=== PATIENT | female | born 1945 | race Native Hawaiian/Other Pacific Islander ===

== ENCOUNTER → 2016-10-16 | Outpatient (CLI) | payer MEDICARE, OTHER ==
[2016-10-16 16:29] LABS: CH 31.9; CHCM 33.7; HCT 39.4 % (34.0-46.0); HDW 2.39; MCH 31.5 pg (25.0-35.0); MCHC 33.1 g/dL (31.0-37.0); MCV 95.2 fL (80.0-100.0); RBC 4.14 m/uL (3.80-5.40); RDW 14.1 % (11.5-15.5); WBC 6.6 k/uL (3.8-10.6)
[2016-10-16 16:39] LABS: Anion Gap 7 mmol/L; Blood Urea Nitrogen 18 mg/dL (7-17); Carbon Dioxide 29 mmol/L (22-30); Chloride 103 mmol/L (98-107); Non-African American GFR(MDRD) >60 (>60 ml/min/1.73 sqM); Potassium 4.5 mmol/L (3.5-5.1); Sodium 139 mmol/L (137-145)
== END | disposition home or self-care (01) ==
LOC: LABPAT 15:52
PROVIDERS: ATTEND Internal Medicine Cardiovascular Disease
DX: Z01.812 Encounter for preprocedural laboratory examination (principal); I73.9 Peripheral vascular disease, unspecified
CPT/HCPCS: 80051; 82565; 84520; 85027

== ENCOUNTER → 2016-10-23 | Day surgery (SDC) | payer MEDICARE, OTHER ==
[2016-10-22 12:02] VITALS: BMI 24.0
[~2016-10-23] MED LIST: SODIUM CHLORIDE 0.9% 1,000 ML IV SCH; ceFAZolin 1,000 MG in SODIUM CHLORIDE 0.9% IRRIGATIO 250 ML IRRIGATION ONE; ceFAZolin 2 GM in SODIUM CHLORIDE 0.9% 100 ML IVPB ONE
== END ==
LOC: CATHEP 09:57
PROVIDERS: ATTEND Internal Medicine Cardiovascular Disease
DX: Z45.010 Encounter for checking and testing of cardiac pacemaker pulse generator [battery] (principal)

== ENCOUNTER 2016-10-29 07:05 | Day surgery (SDC) | payer MEDICARE, OTHER ==
[2016-10-27 11:12] VITALS: BMI 24.0
[2016-10-29] MEDS ORDERED: ceFAZolin 2 GM in SODIUM CHLORIDE 0.9% 100 ML IVPB ONE (07:30)
[2016-10-29] MEDS ORDERED: ceFAZolin 1,000 MG in SODIUM CHLORIDE 0.9% IRRIGATIO 250 ML IRRIGATION ONE (07:30)
[2016-10-29] MEDS ORDERED: IV FLUID CONTINUATION 1,000 ML IV ONE (08:30)
[2016-10-29] MEDS ORDERED: IODIXANOL 270 MG/ML 50 ML ML IV ONE (08:50)
[2016-10-29] MEDS ORDERED: MIDAZOLAM 2 MG/2 ML VIAL ONE (08:58)
[2016-10-29] MEDS ORDERED: fentaNYL (PF) 50 MCG/ML 2 ML AMP ONE (08:58)
[2016-10-29] MEDS ORDERED: fentaNYL (PF) 50 MCG/ML 2 ML AMP IVP ONE (09:00)
[2016-10-29] MEDS ORDERED: LIDOCAINE 1% (PF) 10MG/ML VIAL SQ ONE ×2 (09:02)
[2016-10-29] MEDS: MIDAZOLAM 2 MG/2 ML VIAL IVP ONE ×2 (09:02→09:08)
[2016-10-29] MEDS ORDERED: LIDOCAINE 1% INJ 10MG/ML (20 ML MDV) SQ ONE (09:02)
[2016-10-29] MEDS ORDERED: CYCLOBENZAPRINE 10 MG TAB PO PRN (10:01)
[2016-10-29] MEDS ORDERED: ALPRAZolam 0.5 MG TAB PO PRN (10:01)
--- NOTE | 2016-10-29 10:13 | P.PCN ---
Date of Procedure: 10/29/16 Preoperative Diagnosis: Battery depletion and ventricular lead malfunction with inconsistent thresholds. Postoperative Diagnosis: The same Procedure(s) Performed: Battery replacement and insertion of new ventricular lead. Old ventricular lead is capped sutured to the floor. Axillary venography Implants: Indications for Procedure: Operative Findings: Description of Procedure: HISTORY: This is a 71-year-old female with history of dual-chamber permanent pacemaker who has reached [facility]. Patient also has problems the ventricular lead with inconsistent thresholds and lead impedance. Patient is advised to have a new ventricular lead insertion and battery change. CONSENT:I have discussed the risks, benefits and alternative therapies for the above-mentioned procedure and for both sedation/analgesia as well as necessary blood product administration, if indicated, as they pertain to this patient. The patient has indicated understanding and acceptance of the risks and procedures discussed. PROCEDURE: Patient was brought to the lab in a fasting state. Patient was prepped and draped in the usual fashion. Patient was given IV conscious sedation with fentanyl and Versed. Patient had axillary venography delineate the course of the axillary vein. The skin over the existing pulse generator was infiltrated with lidocaine. An incision was made and the capsule was exposed. The capsule was cut open and pulse generator was pulled out of the pocket. The leads were checked for thresholds. Atrial lead threshold appeared to be consistent and ventricular lead threshold appeared to be inconsistent with inconsistent impedance. Patient is advised to have a new lead. A single stick was performed into the axillary vein under fluoroscopy and its sheath was advanced into the superior vena cava. The ventricular lead was advanced into the right ventricle and was sutured to the septal area. Satisfactory position was obtained and thresholds were excellent. The old ventricular lead was And was sutured to the floor. The old atrial lead and the new ventricular lead were connected to a new pulse generator. Threshold remains stable. Conscious Sedation: Versed [: 1]mg Fentanyl 50 g Duration 55 minutes LEADS: ATRIAL: . This is manufactured by [employer] model #4480 and the serial number is [id number]. OLD VENTRICULAR: This is manufactured by [employer]. Model number is 4480. Serial number is [id number] NEW VENTRICULAR LEAD: This is manufactured by [employer]. Model number is 7742. Serial number is [id number] THRESHOLDS: ATRIUM: P-wave could not be measured. The minimum patient threshold was 0.5 V at went pulse width of 0.5 ms. Impedance is 458 ohms VENTRICLE: The minimal patient threshold was 0.6 V at pulse width of 0.5 ms. Impedance is 681 ohms R-wave: 17 mV The leads and pulse generator remained in the pocket after it was washed with antibiotics. Pocket was closed in the usual fashion. The fascia was closed with 2-0 Prolene ,the subcutaneous tissue was closed with 3-0 Prolene and the skin was closed with 4-0 Prolene. PROGRAMMING: MODE: DDDR RATE: 60-120 OUTPUT: [facility] Ventricle FINAL IMPRESSION: #1. Insertion of the new ventricular lead #2. Pulse generator change. #3. Axillary venography COMPLICATIONS: Nil PLAN: . Patient will be monitored on the telemetry unit. If stable patient be discharged home tomorrow. Chest x-ray in the morning. We'll continue prophylactic antibiotics
[2016-10-29] MEDS: FOLIC ACID 1 MG TAB PO SCH (13:11)
[2016-10-29] MEDS: ceFAZolin 2 GM in SODIUM CHLORIDE 0.9% 100 ML IVPB SCH ×2 (15:17→20:17)
[2016-10-29] MEDS: ACETAMINOPHEN TAB 325 MG TAB PO PRN ×2 (15:20→19:41)
[2016-10-29] MEDS ORDERED: traZODone HCL 100 MG TAB PO SCH (19:00)
[2016-10-29] MEDS: SODIUM CHLORIDE 0.9% 1,000 ML IV SCH (19:27)
[2016-10-29] MEDS: FAMOTIDINE 20 MG TAB PO SCH (20:18)
[2016-10-29] MEDS: OXYBUTYNIN CHLORIDE 5 MG TAB PO SCH (20:18)
[2016-10-29] MEDS: METOPROLOL TARTRATE 25 MG TAB PO SCH (20:19)
[2016-10-29] MEDS ORDERED: LATANOPROST 0.005% OPHTH DROPS 2.5 ML BTL BOTH EYES SCH (21:00)
[2016-10-29] MEDS ORDERED: GABAPENTIN 100 MG CAP PO SCH (21:00)
[2016-10-30] MEDS: ceFAZolin 2 GM in SODIUM CHLORIDE 0.9% 100 ML IVPB SCH ×2 (02:57→08:57)
[2016-10-30] MEDS: SODIUM CHLORIDE 0.9% 1,000 ML IV SCH (02:57)
[2016-10-30] MEDS ORDERED: LEVOTHYROXINE 125 MCG TAB PO SCH (06:30)
--- NOTE | 2016-10-30 07:05 | XR ---
EXAMINATION TYPE: XR chest 2V DATE OF EXAM: 10/30/2016 COMPARISON: 08/03/2014 HISTORY: Lead placement check TECHNIQUE: Frontal and lateral views of the chest are obtained. FINDINGS: Previously seen left-sided cardiac device has been replaced in the interim. New 3-lead card iac device has been implanted. Right-sided sinoatrial lead and ventricular leads are in place. Thorac ic aorta is tortuous. Left costophrenic angle is obscured by linear left basilar atelectasis. There i s no focal air space opacity, pleural effusion, or pneumothorax seen. The cardiac silhouette size is within normal limits. The osseous structures are intact. Chronic opacity overlying the right upper lung and may relate to overlying soft tissues or pleural-based density, however this is unchanged da ting back to 08/03/2014 and presumed to be benign. IMPRESSION: 1. Exchange of a left-sided cardiac device with new 3-lead cardiac device in place, leads appear appr opriately placed. 2. Left basilar atelectasis.
[2016-10-30 07:29] VITALS: RESP 18; TEMP 98
[2016-10-30] MEDS: METOPROLOL TARTRATE 25 MG TAB PO SCH (08:58)
[2016-10-30] MEDS: FAMOTIDINE 20 MG TAB PO SCH (08:58)
[2016-10-30] MEDS: OXYBUTYNIN CHLORIDE 5 MG TAB PO SCH (08:59)
[2016-10-30] MEDS ORDERED: VIT A,C & E-LUTEIN-MINERALS 1 EACH TAB PO SCH (09:00)
[2016-10-30] MEDS ORDERED: CITALOPRAM HYDROBROMIDE 10 MG TAB PO SCH (09:00)
[2016-10-30] MEDS ORDERED: LORATADINE 10 MG TAB PO SCH (09:00)
--- NOTE | 2016-10-30 10:33 | P.DS ---
Providers Date of admission: 10/29/2016 Expected date of discharge: 10/30/16 Attending physician: Lowell Lowe Primary care physician: [facility] Course: This is a 71-year-old female who presented yesterday for battery depletion and ventricular lead malfunction of dual chamber pacemaker. She underwent a battery replacement and insertion of new ventricular lead with Dr. Lowe. She tolerated the procedure without incident. Interrogation of her pacemaker was performed and deemed appropriate. Post chest xray indicates no pneumothorax with appropriate lead placement. Antibiotics have infused without incident and she is stable for discharge home to follow up with Dr. Zurita in 1 week. Instructions were given to the patient to continue to wear the sling provided on the left arm until her follow-up appt. She is not to lift, push or pull with that arm. Keep the site clean and dressing intact. She has been given prescription for [place] for pain and Keflex antibiotic. She has verbalized understanding of all instructions. Follow-up appt has been made prior to discharge home. Procedures: Dual-chamber permanent pacemaker battery replacement and insertion of new ventricular lead. Patient Condition at Discharge: Good Plan - Discharge Summary New Discharge Prescriptions: New Cephalexin [Keflex] 500 mg PO Q8HR #9 cap HYDROcodone/APAP 5-325MG [[place] 5-325] 1 tab PO Q6HR PRN #10 tab PRN Reason: Pain Continue Metoprolol Tartrate [Lopressor] 25 mg PO BID Etanercept [Enbrel] 50 mg SQ TU Cyclobenzaprine [Flexeril] 10 mg PO HS PRN PRN Reason: Muscle Spasm Ranitidine HCl [Zantac] 150 mg PO BID Oxybutynin Chloride [Ditropan] 5 mg PO BID Folic Acid 1 mg PO DAILY Gabapentin [Neurontin] 100 mg PO HS HYDROcodone/APAP 7.5-325MG [[place] 7.5-325] 1 tab PO Q6HR PRN PRN Reason: Pain Levothyroxine Sodium [Synthroid] 125 mcg PO DAILY ALPRAZolam [Xanax] 0.5 mg PO BID PRN PRN Reason: Anxiety Citalopram Hydrobromide [CeleXA] 10 mg PO DAILY Latanoprost Ophth [Xalatan 0.005%] 1 drops BOTH EYES HS traZODone HCL 100 mg PO DAILY@1900 Multivit-Min/FA/Lycopen/Lutein [Centrum Silver Tablet] 1 each PO DAILY Loratadine 10 mg PO DAILY Discharge Medication List Cyclobenzaprine [Flexeril] 10 mg PO HS PRN 09/09/13 [History] Etanercept [Enbrel] 50 mg SQ TU 09/09/13 [History] Folic Acid 1 mg PO DAILY 09/09/13 [History] Metoprolol Tartrate [Lopressor] 25 mg PO BID 09/09/13 [History] Oxybutynin Chloride [Ditropan] 5 mg PO BID 09/09/13 [History] Ranitidine HCl [Zantac] 150 mg PO BID 09/09/13 [History] Gabapentin [Neurontin] 100 mg PO HS 05/17/14 [History] HYDROcodone/APAP 7.5-325MG [[place] 7.5-325] 1 tab PO Q6HR PRN 10/23/16 [History] ALPRAZolam [Xanax] 0.5 mg PO BID PRN 10/27/16 [History] Citalopram Hydrobromide [CeleXA] 10 mg PO DAILY 10/27/16 [History] Latanoprost Ophth [Xalatan 0.005%] 1 drops BOTH EYES HS 10/27/16 [History] Levothyroxine Sodium [Synthroid] 125 mcg PO DAILY 10/27/16 [History] Loratadine 10 mg PO DAILY 10/27/16 [History] Multivit-Min/FA/Lycopen/Lutein [Centrum Silver Tablet] 1 each PO DAILY 10/27/16 [History] traZODone HCL 100 mg PO DAILY@1900 10/27/16 [History] Cephalexin [Keflex] 500 mg PO Q8HR #9 cap 10/30/16 [Rx] HYDROcodone/APAP 5-325MG [[place] 5-325] 1 tab PO Q6HR PRN #10 tab 10/30/16 [Rx] Follow up Appointment(s)/Referral(s): Lowell Lowe MD [STAFF PHYSICIAN] - 1 Week (Appointment made for device check on Nov.05 @ 3:00pm.) Patient Instructions/Handouts: Pacemaker Generator Change (DC) Activity/Diet/Wound Care/Special Instructions: Wear sling until follow up visit with Dr. Lowe. No lifting left arm above the shoulder, no pushing or pulling. Keep the area clean and dry until appointment. If you notice any increased pain, swelling, redness or fever report to Emergency department. Discharge Disposition: HOME SELF-CARE
[2016-10-30 11:19] VITALS: BP 121/74; PULSE 61
[2016-10-30] MEDS: FOLIC ACID 1 MG TAB PO SCH (12:31)
[2016-11-04] MEDS ORDERED: NON-FORMULARY DRUG (Etanercept [Enbrel] 50 MG) SQ SCH (10:01)
== END 2016-10-30 13:40 | disposition home or self-care (01) ==
LOC: CATHEP 07:05 → 3OBS 09:53 → CATHEP 10-30 13:40
PROVIDERS: ATTEND Internal Medicine Cardiovascular Disease
DX: Z45.010 Encounter for checking and testing of cardiac pacemaker pulse generator [battery] (principal); T82.118A Breakdown (mechanical) of other cardiac electronic device, initial encounter; I49.5 Sick sinus syndrome; I44.1 Atrioventricular block, second degree; E03.9 Hypothyroidism, unspecified; M06.9 Rheumatoid arthritis, unspecified; Z79.899 Other long term (current) drug therapy; Z87.891 Personal history of nicotine dependence; Z88.5 Allergy status to narcotic agent
CPT/HCPCS: 33215; 33228; 71020; 99152; 99153 ×2; C1785; C1898; J2250; Q9966; J0690 ×3; J2001; J3010

== ENCOUNTER 2016-11-27 04:32 | Observation (INO) | payer MEDICARE, OTHER ==
[2016-11-27 04:36] VITALS: RESP 18
[2016-11-27] MEDS ORDERED: NITROGLYCERIN OINT 1 INCH/GM PACKET TOPICAL STA (05:04)
[2016-11-27] MEDS ORDERED: MAG HYDROX/AL HYDROX/SIMETH 30 ML, HYOSCYAMINE ELIXIR 10 ML, CIMETIDINE HCL 300 MG PO STA ×3 (05:04)
[2016-11-27] MEDS ORDERED: ASPIRIN 81 MG PO STA (05:04)
[2016-11-27] MEDS ORDERED: IPRATROPIUM-ALBUTEROL 3 ML NEB INHALATION STA (05:05)
--- NOTE | 2016-11-27 05:08 | ED ---
General Adult HPI - General Chief complaint: Shortness of Breath Stated complaint: SOB,FALL Time Seen by Provider: 11/27/16 04:40 Source: patient, family, RN notes reviewed Mode of arrival: ambulatory Limitations: no limitations - History of Present Illness Initial comments: This is a 71-year-old female with past medical history significant for recent pacemaker replacement. Patient comes in today because she woke up the middle night with heartburn and couldn't stop coughing. Patient states she still feels short of breath and she's having some chest heaviness as well as this point. Patient denies any radiation of the heaviness. Patient denies any abdominal pain patient denies nausea vomiting. Patient states she has been coughing ever since she woke up but has not had any fever or chills. Patient denies any headache or lightheadedness. Patient denies any numbness or weakness. Patient states she used to smoke but quit about 20 years ago. - Related Data Home Medications Medication Instructions Recorded Confirmed Cyclobenzaprine [Flexeril] 10 mg PO HS PRN 09/09/13 11/27/16 Etanercept [Enbrel] 50 mg SQ TU 09/09/13 11/27/16 Folic Acid 1 mg PO DAILY 09/09/13 11/27/16 Metoprolol Tartrate [Lopressor] 25 mg PO BID 09/09/13 11/27/16 Oxybutynin Chloride [Ditropan] 5 mg PO BID 09/09/13 11/27/16 Ranitidine HCl [Zantac] 150 mg PO BID 09/09/13 11/27/16 Gabapentin [Neurontin] 100 mg PO HS 05/17/14 11/27/16 HYDROcodone/APAP 7.5-325MG [[place] 1 tab PO Q6HR PRN 10/23/16 11/27/16 7.5-325] ALPRAZolam [Xanax] 0.5 mg PO BID PRN 10/27/16 11/27/16 Citalopram Hydrobromide [CeleXA] 10 mg PO DAILY 10/27/16 11/27/16 Latanoprost Ophth [Xalatan 0.005%] 1 drops BOTH EYES HS 10/27/16 11/27/16 Levothyroxine Sodium [Synthroid] 125 mcg PO DAILY 10/27/16 11/27/16 Loratadine 10 mg PO DAILY 10/27/16 11/27/16 Multivit-Min/FA/Lycopen/Lutein 1 each PO DAILY 10/27/16 11/27/16 [Centrum Silver Tablet] traZODone HCL 100 mg PO DAILY@1900 10/27/16 11/27/16 Previous Rx's Medication Instructions Recorded HYDROcodone/APAP 5-325MG [[place] 1 tab PO Q6HR PRN #10 tab 10/30/16 5-325] Allergies Allergy/AdvReac Type Severity Reaction Status Date / Time codeine Allergy Nausea & Verified 11/27/16 04:37 Vomiting sulfamethoxazole Allergy Rash/Hives Verified 11/27/16 04:37 [From Bactrim] trimethoprim [From Bactrim] Allergy Rash/Hives Verified 11/27/16 04:37 Review of Systems ROS Statement: Those systems with pertinent positive or pertinent negative responses have been documented in the HPI. ROS Other: All systems not noted in ROS Statement are negative. Past Medical History Past Medical History: Asthma, GERD/Reflux, Osteoarthritis (OA), Pneumonia, Rheumatoid Arthritis (RA), Thyroid Disorder Additional Past Medical History / Comment(s): See Dr Lowe H&P. Hx glaucoma. Current bilateral Carpal Tunnel. Hx pneumonia approx 30 days ago. History of Any Multi-Drug Resistant Organisms: None Reported Past Surgical History: Appendectomy, Pacemaker Additional Past Surgical History / Comment(s): Pacemaker, kidney stone removal, eye surgery for glaucoma. Past Anesthesia/Blood Transfusion Reactions: No Reported Reaction Type of Cardiac Device: Permanent Pacemaker Device Placement Date:: UNKNOWN Past Psychological History: Anxiety Smoking Status: Former smoker Past Alcohol Use History: None Reported Past Drug Use History: None Reported - Past Family History Father Family Medical History: Asthma, Cancer Mother Family Medical History: Cancer General Exam - General Exam Comments Initial Comments: GENERAL: Patient is well-developed and well-nourished. Patient is nontoxic and well- hydrated and is mild distress. ENT: Neck is soft and supple. No significant lymphadenopathy is noted. Oropharynx is clear. Moist mucous membranes. Neck has full range of motion without eliciting any pain. EYES: The sclera were anicteric and conjunctiva were pink and moist. Extraocular movements were intact and pupils were equal round and reactive to light. Eyelids were unremarkable. PULMONARY: Patient is diffusely very wheezing and some slight crackles in the left base. CARDIOVASCULAR: There is a regular rate and rhythm without any murmurs gallops or rubs. ABDOMEN: Soft and nontender with normal bowel sounds. No palpable organomegaly was noted. There is no palpable pulsatile mass. SKIN: Skin is clear with no lesions or rashes and otherwise unremarkable. NEUROLOGIC: Patient is alert and oriented x3. Cranial nerves II through XII are grossly intact. Motor and sensory are also intact. Normal speech, volume and content. Symmetrical smile. MUSCULOSKELETAL: Normal extremities with adequate strength and full range of motion. No lower extremity swelling or edema. No calf tenderness. LYMPHATICS: No significant lymphadenopathy is noted PSYCHIATRIC: Normal psychiatric evaluation. Normal interpersonal interactions appears functionally intact in deals appropriately with others. No signs of depression. No signs of anxiety. Limitations: no limitations Course Vital Signs 11/27/16 11/27/16 11/27/16 04:34 05:08 05:10 Temperature 98.7 F Pulse Rate 64 60 59 L Respiratory 18 18 Rate Blood Pressure 150/80 129/86 O2 Sat by Pulse 96 99 Oximetry 11/27/16 05:19 Temperature Pulse Rate 60 Respiratory Rate Blood Pressure O2 Sat by Pulse Oximetry Medical Decision Making - Medical Decision Making EKG shows a paced rhythm at 60 bpm TN interval is 194 QRS is 74 Q-T intervals 502 QTC is 502. Patient's EKG shows no ST segment elevation or depression. Chest x-ray shows no acute abnormality. I went back into the room to reevaluate the patient she was resting comfortably when I awoke her she stated she still is having a little bit of chest pain. I spoke with Dr. Cole she agreed to admit the patient admitted the patient I consult to cardiology. - Lab Data Result diagrams: 11/27/16 04:54 11/27/16 04:54 Lab Results 11/27/16 11/27/16 11/27/16 Range/Units 04:54 04:54 04:54 WBC 6.3 (3.8-10.6) k/uL RBC 4.24 (3.80-5.40) m/uL Hgb 13.2 (11.4-16.0) gm/dL Hct 40.1 (34.0-46.0) % MCV 94.7 (80.0-100.0) fL MCH 31.2 (25.0-35.0) pg MCHC 32.9 (31.0-37.0) g/dL RDW 14.5 (11.5-15.5) % Plt Count 211 (150-450) k/uL PT (9.0-12.0) sec INR (<1.2) APTT (22.0-30.0) sec Sodium 141 (137-145) mmol/L Potassium 3.6 (3.5-5.1) mmol/L Chloride 106 (98-107) mmol/L Carbon Dioxide 25 (22-30) mmol/L Anion Gap 10 mmol/L BUN 11 (7-17) mg/dL Creatinine 0.80 (0.52-1.04) mg/dL Est GFR (MDRD) Af Amer >60 (>60 ml/min/1.73 sqM) Est GFR (MDRD) Non-Af >60 (>60 ml/min/1.73 sqM) Glucose 112 H (74-99) mg/dL Calcium 9.8 (8.4-10.2) mg/dL Magnesium 2.1 (1.6-2.3) mg/dL Total Bilirubin 0.5 (0.2-1.3) mg/dL AST 20 (14-36) U/L ALT 31 (9-52) U/L Alkaline Phosphatase 67 (38-126) U/L Total Creatine Kinase 61 (30-135) U/L CK-MB (CK-2) 0.9 (0.0-2.4) ng/mL CK-MB (CK-2) Rel Index 1.5 Troponin I <0.012 (0.000-0.034) ng/mL Total Protein 6.7 (6.3-8.2) g/dL Albumin 3.9 (3.5-5.0) g/dL 11/27/16 Range/Units 04:54 WBC (3.8-10.6) k/uL RBC (3.80-5.40) m/uL Hgb (11.4-16.0) gm/dL Hct (34.0-46.0) % MCV (80.0-100.0) fL MCH (25.0-35.0) pg MCHC (31.0-37.0) g/dL RDW (11.5-15.5) % Plt Count (150-450) k/uL PT 10.1 (9.0-12.0) sec INR 1.0 (<1.2) APTT 24.0 (22.0-30.0) sec Sodium (137-145) mmol/L Potassium (3.5-5.1) mmol/L Chloride (98-107) mmol/L Carbon Dioxide (22-30) mmol/L Anion Gap mmol/L BUN (7-17) mg/dL Creatinine (0.52-1.04) mg/dL Est GFR (MDRD) Af Amer (>60 ml/min/1.73 sqM) Est GFR (MDRD) Non-Af (>60 ml/min/1.73 sqM) Glucose (74-99) mg/dL Calcium (8.4-10.2) mg/dL Magnesium (1.6-2.3) mg/dL Total Bilirubin (0.2-1.3) mg/dL AST (14-36) U/L ALT (9-52) U/L Alkaline Phosphatase (38-126) U/L Total Creatine Kinase (30-135) U/L CK-MB (CK-2) (0.0-2.4) ng/mL CK-MB (CK-2) Rel Index Troponin I (0.000-0.034) ng/mL Total Protein (6.3-8.2) g/dL Albumin (3.5-5.0) g/dL Disposition Clinical Impression: Chest pain, Acute bronchospasm Disposition: ADMITTED IP TO THIS [facility] Referrals: Ro Root MD [Primary Care Provider] - 1-2 days Time of Disposition: 06:10
[2016-11-27 05:18] LABS: CH 32.2; CHCM 34.1; HCT 40.1 % (34.0-46.0); HDW 2.46; HGB 13.2 gm/dL (11.4-16.0); MCH 31.2 pg (25.0-35.0); MCHC 32.9 g/dL (31.0-37.0); MCV 94.7 fL (80.0-100.0); Mean Platelet Volume 7.9; RBC 4.24 m/uL (3.80-5.40); RDW 14.5 % (11.5-15.5); WBC 6.3 k/uL (3.8-10.6)
[2016-11-27 05:28] LABS: ALT 31 U/L (9-52); AST 20 U/L (14-36); Alkaline Phosphatase 67 U/L (38-126); Anion Gap 10 mmol/L; Blood Urea Nitrogen 11 mg/dL (7-17); Calcium 9.8 mg/dL (8.4-10.2); Carbon Dioxide 25 mmol/L (22-30); Chloride 106 mmol/L (98-107); Glucose 112 mg/dL (74-99); Magnesium 2.1 mg/dL (1.6-2.3); Non-African American GFR(MDRD) >60 (>60 ml/min/1.73 sqM); Potassium 3.6 mmol/L (3.5-5.1); Prothrombin Time 10.1 sec (9.0-12.0); Sodium 141 mmol/L (137-145); Total Bilirubin 0.5 mg/dL (0.2-1.3); Total Protein 6.7 g/dL (6.3-8.2)
[2016-11-27 05:37] LABS: Creatine Kinase 61 U/L (30-135)
[2016-11-27 05:50] LABS: Creatine Kinase MB 0.9 ng/mL (0.0-2.4); Troponin I <0.012 ng/mL (0.000-0.034)
[2016-11-27] MEDS ORDERED: NITROGLYCERIN SL TABS 0.4 MG TAB SUBLINGUAL PRN (06:11)
--- NOTE | 2016-11-27 06:21 | XR ---
EXAM: XR Chest, 2 Views CLINICAL HISTORY: Reason: Pain TECHNIQUE: Frontal and lateral views of the chest. COMPARISON: 10/30/2016. FINDINGS: Lungs: Mild left greater than right basilar opacities, possible atelectasis. Pleural space: No pneumothorax. Heart: Stable to slightly increased cardiac silhouette, may be related to differences in technique or pericardial effusion. Mediastinum: Stable. Bones/joints: Stable. Tubes, lines and devices: Stable left chest pacemaker. IMPRESSION: 1. Mild left greater than right basilar opacities, possible atelectasis. Correlate clinically to exclude an infectious process. 2. Stable to slightly increased cardiac silhouette, may be related to differences in technique or pericardial effusion.
[2016-11-27 06:55] VITALS: TEMP 98.1
[2016-11-27] MEDS: IPRATROPIUM-ALBUTEROL 3 ML NEB INHALATION SCH ×3 (08:29→15:59)
[2016-11-27 08:32] LABS: Creatine Kinase 57 U/L (30-135)
--- NOTE | 2016-11-27 08:37 | P.CRDCN ---
History of Present Illness History of present illness: 71-year-old female presenting with cough and possible upper respiratory symptoms. No chest discomfort but she was complaining of shortness of breath. Recent pacemaker generator change and implantation of a new right ventricular lead. Please see full dictation nurse practitioner Suggest 2-D echo and Doppler study Past Medical History Past Medical History: Asthma, Eye Disorder, GERD/Reflux, Osteoarthritis (OA), Pneumonia, Rheumatoid Arthritis (RA), Thyroid Disorder Additional Past Medical History / Comment(s): Recent pneumonia, SSS with pacer, arthritis bilateral hands, shoulders, neck and feet, hypothyroid, bilateral glaucoma, bilateral carpal tunnel syndrome. History of Any Multi-Drug Resistant Organisms: None Reported Past Surgical History: Appendectomy, Orthopedic Surgery, Pacemaker Additional Past Surgical History / Comment(s): Pacemaker, generator changes with last time being 10/30/16, kidney stone removal, bilateral eye surgery for glaucoma, colonoscopy, R foot hammer toe. Past Anesthesia/Blood Transfusion Reactions: No Reported Reaction Type of Cardiac Device: Permanent Pacemaker Device Placement Date:: 02/15/01 Smoking Status: Former smoker - Past Family History Father Family Medical History: Asthma, Cancer Additional Family Medical History / Comment(s): Father from prostate cancer at the age of 66yrs. Mother Family Medical History: Cancer Additional Family Medical History / Comment(s): Mother had lung cancer. She was a nonsmoker but exposed to 2nd hand smoke. She at the age of 53 yrs form the lung cancer and other "complications." Medications and Allergies Home Medications Medication Instructions Recorded Confirmed Type Etanercept [Enbrel] 50 mg SQ TU 09/09/13 11/27/16 History Folic Acid 1 mg PO DAILY 09/09/13 11/27/16 History Metoprolol Tartrate [Lopressor] 25 mg PO BID 09/09/13 11/27/16 History Oxybutynin Chloride [Ditropan] 5 mg PO BID 09/09/13 11/27/16 History Ranitidine HCl [Zantac] 150 mg PO BID 09/09/13 11/27/16 History Gabapentin [Neurontin] 100 mg PO HS 05/17/14 11/27/16 History HYDROcodone/APAP 7.5-325MG [[place] 1 tab PO Q6HR PRN 10/23/16 11/27/16 History 7.5-325] ALPRAZolam [Xanax] 0.5 mg PO BID PRN 10/27/16 11/27/16 History Citalopram Hydrobromide [CeleXA] 10 mg PO DAILY 10/27/16 11/27/16 History Latanoprost Ophth [Xalatan 0.005%] 1 drops BOTH EYES HS 10/27/16 11/27/16 History Levothyroxine Sodium [Synthroid] 125 mcg PO DAILY 10/27/16 11/27/16 History Loratadine 10 mg PO DAILY 10/27/16 11/27/16 History Multivit-Min/FA/Lycopen/Lutein 1 each PO DAILY 10/27/16 11/27/16 History [Centrum Silver Tablet] traZODone HCL 100 mg PO DAILY@1900 10/27/16 11/27/16 History Allergies Allergy/AdvReac Type Severity Reaction Status Date / Time codeine Allergy Rash/Hives Verified 11/27/16 08:05 sulfamethoxazole Allergy Rash/Hives Verified 11/27/16 08:05 [From Bactrim] trimethoprim [From Bactrim] Allergy Rash/Hives Verified 11/27/16 08:05 Physical Exam Vitals: Vital Signs Temp Pulse Pulse Resp BP BP Pulse Ox 11/27/16 08:29 64 11/27/16 06:53 98.1 F 61 18 145/89 99 11/27/16 06:30 98.2 F 60 18 129/80 99 11/27/16 05:19 60 11/27/16 05:10 59 L 18 129/86 99 11/27/16 05:08 60 11/27/16 04:34 98.7 F 64 18 150/80 96 Intake and Output 11/26/16 11/27/16 11/27/16 22:59 06:59 14:59 Other: Weight 61.5 kg Results 11/27/16 04:54 11/27/16 04:54 Cardiac Enzymes 11/27/16 11/27/16 Range/Units 04:54 04:54 AST 20 (14-36) U/L CK-MB (CK-2) 0.9 (0.0-2.4) ng/mL Troponin I <0.012 (0.000-0.034) ng/mL Coagulation 11/27/16 Range/Units 04:54 PT 10.1 (9.0-12.0) sec APTT 24.0 (22.0-30.0) sec CBC 11/27/16 Range/Units 04:54 WBC 6.3 (3.8-10.6) k/uL RBC 4.24 (3.80-5.40) m/uL Hgb 13.2 (11.4-16.0) gm/dL Hct 40.1 (34.0-46.0) % Plt Count 211 (150-450) k/uL Comprehensive Metabolic Panel 11/27/16 Range/Units 04:54 Sodium 141 (137-145) mmol/L Potassium 3.6 (3.5-5.1) mmol/L Chloride 106 (98-107) mmol/L Carbon Dioxide 25 (22-30) mmol/L BUN 11 (7-17) mg/dL Creatinine 0.80 (0.52-1.04) mg/dL Glucose 112 H (74-99) mg/dL Calcium 9.8 (8.4-10.2) mg/dL AST 20 (14-36) U/L ALT 31 (9-52) U/L Alkaline Phosphatase 67 (38-126) U/L Total Protein 6.7 (6.3-8.2) g/dL Albumin 3.9 (3.5-5.0) g/dL Current Medications Generic Name Dose Route Start Last Admin Trade Name Freq PRN Reason Stop Dose Admin Albuterol/Ipratropium 3 ml 11/27/16 08:00 11/27/16 08:29 Duoneb 0.5 Mg-3 Mg/3 Ml Soln INHALATION 3 ml RT-QID GAYLE Administration Aspirin 325 mg 11/28/16 09:00 Aspirin PO DAILY [facility] Nitroglycerin 1 inch 11/27/16 12:00 Nitro-Bid Oint TOPICAL Q6HR [facility] Nitroglycerin 0.4 mg 11/27/16 06:11 Nitrostat SUBLINGUAL Q5M PRN Chest Pain Intake and Output 11/26/16 11/27/16 11/27/16 22:59 06:59 14:59 Other: Weight 61.5 kg 11/27/16 04:54 11/27/16 04:54
[2016-11-27 08:43] LABS: Troponin I <0.012 ng/mL (0.000-0.034)
--- NOTE | 2016-11-27 10:37 | P.CRDCN ---
History of Present Illness Consult date: 11/27/16 History of present illness: This is a 71 year old female. She has past medical history significant for sick sinus syndrome with pacemaker implantation. She recently underwent new lead insertion and generator change with Dr. Pereira 10/29. She came to the hospital with complaints of cough and shortness of breath. She states she has been having symptoms of upper respiratory congestion over the past few days. Denies chest pain, dizziness, palpitations, nausea or vomiting. She is a non- smoker. EKG reveals atrial paced rhythm. Troponin negative x2. Review of Systems Extensive review of systems performed, negative except mentioned in HPI. Past Medical History Past Medical History: Asthma, Eye Disorder, GERD/Reflux, Osteoarthritis (OA), Pneumonia, Rheumatoid Arthritis (RA), Thyroid Disorder Additional Past Medical History / Comment(s): Recent pneumonia, SSS with pacer, arthritis bilateral hands, shoulders, neck and feet, hypothyroid, bilateral glaucoma, bilateral carpal tunnel syndrome. History of Any Multi-Drug Resistant Organisms: None Reported Past Surgical History: Appendectomy, Orthopedic Surgery, Pacemaker Additional Past Surgical History / Comment(s): Pacemaker, generator changes with last time being 10/30/16, kidney stone removal, bilateral eye surgery for glaucoma, colonoscopy, R foot hammer toe. Past Anesthesia/Blood Transfusion Reactions: No Reported Reaction Type of Cardiac Device: Permanent Pacemaker Device Placement Date:: 02/15/01 Smoking Status: Former smoker - Past Family History Father Family Medical History: Asthma, Cancer Additional Family Medical History / Comment(s): Father from prostate cancer at the age of 66yrs. Mother Family Medical History: Cancer Additional Family Medical History / Comment(s): Mother had lung cancer. She was a nonsmoker but exposed to 2nd hand smoke. She at the age of 51 yrs form the lung cancer and other "complications." Medications and Allergies Home Medications Medication Instructions Recorded Confirmed Type Etanercept [Enbrel] 50 mg SQ TU 09/09/13 11/27/16 History Folic Acid 1 mg PO DAILY 09/09/13 11/27/16 History Metoprolol Tartrate [Lopressor] 25 mg PO BID 09/09/13 11/27/16 History Oxybutynin Chloride [Ditropan] 5 mg PO BID 09/09/13 11/27/16 History Ranitidine HCl [Zantac] 150 mg PO BID 09/09/13 11/27/16 History Gabapentin [Neurontin] 100 mg PO HS 05/17/14 11/27/16 History HYDROcodone/APAP 7.5-325MG [[place] 1 tab PO Q6HR PRN 10/23/16 11/27/16 History 7.5-325] ALPRAZolam [Xanax] 0.5 mg PO BID PRN 10/27/16 11/27/16 History Citalopram Hydrobromide [CeleXA] 10 mg PO DAILY 10/27/16 11/27/16 History Latanoprost Ophth [Xalatan 0.005%] 1 drops BOTH EYES HS 10/27/16 11/27/16 History Levothyroxine Sodium [Synthroid] 125 mcg PO DAILY 10/27/16 11/27/16 History Loratadine 10 mg PO DAILY 10/27/16 11/27/16 History Multivit-Min/FA/Lycopen/Lutein 1 each PO DAILY 10/27/16 11/27/16 History [Centrum Silver Tablet] traZODone HCL 100 mg PO DAILY@1900 10/27/16 11/27/16 History Allergies Allergy/AdvReac Type Severity Reaction Status Date / Time codeine Allergy Rash/Hives Verified 11/27/16 08:05 sulfamethoxazole Allergy Rash/Hives Verified 11/27/16 08:05 [From Bactrim] trimethoprim [From Bactrim] Allergy Rash/Hives Verified 11/27/16 08:05 Physical Exam Vitals: Vital Signs Temp Pulse Pulse Resp BP BP Pulse Ox 11/27/16 08:39 60 11/27/16 08:29 64 11/27/16 06:53 98.1 F 61 18 145/89 99 11/27/16 06:30 98.2 F 60 18 129/80 99 11/27/16 05:19 60 11/27/16 05:10 59 L 18 129/86 99 11/27/16 05:08 60 11/27/16 04:34 98.7 F 64 18 150/80 96 Intake and Output 11/26/16 11/27/16 11/27/16 22:59 06:59 14:59 Other: Weight 61.5 kg GENERAL: This is a 71-year-old female in no apparent distress at the time of my examination. HEENT: Head is atraumatic, normocephalic. Pupils are equal, round. Sclerae anicteric. Conjunctivae are clear. Mucous membranes of the mouth are moist. Neck is supple. There is no jugular venous distention. No carotid bruit is heard. LUNGS: Clear to auscultation no wheezes, rales or rhonchi. No chest wall tenderness is noted on palpation or with deep breathing. HEART: Regular rate and rhythm without murmurs, rubs or gallops. S1 and S2 heard. ABDOMEN: Soft, nontender. Bowel sounds are heard. No organomegaly noted. EXTREMITIES: 2+ peripheral pulses with no evidence of peripheral edema and no calf tenderness noted. NEUROLOGIC: Patient is awake, alert and oriented x3. Results 11/27/16 04:54 11/27/16 04:54 Cardiac Enzymes 11/27/16 11/27/16 11/27/16 Range/Units 04:54 04:54 06:56 AST 20 (14-36) U/L CK-MB (CK-2) 0.9 1.0 (0.0-2.4) ng/mL Troponin I <0.012 <0.012 (0.000-0.034) ng/mL Coagulation 11/27/16 Range/Units 04:54 PT 10.1 (9.0-12.0) sec APTT 24.0 (22.0-30.0) sec CBC 11/27/16 Range/Units 04:54 WBC 6.3 (3.8-10.6) k/uL RBC 4.24 (3.80-5.40) m/uL Hgb 13.2 (11.4-16.0) gm/dL Hct 40.1 (34.0-46.0) % Plt Count 211 (150-450) k/uL Comprehensive Metabolic Panel 11/27/16 Range/Units 04:54 Sodium 141 (137-145) mmol/L Potassium 3.6 (3.5-5.1) mmol/L Chloride 106 (98-107) mmol/L Carbon Dioxide 25 (22-30) mmol/L BUN 11 (7-17) mg/dL Creatinine 0.80 (0.52-1.04) mg/dL Glucose 112 H (74-99) mg/dL Calcium 9.8 (8.4-10.2) mg/dL AST 20 (14-36) U/L ALT 31 (9-52) U/L Alkaline Phosphatase 67 (38-126) U/L Total Protein 6.7 (6.3-8.2) g/dL Albumin 3.9 (3.5-5.0) g/dL Current Medications Generic Name Dose Route Start Last Admin Trade Name Freq PRN Reason Stop Dose Admin Albuterol/Ipratropium 3 ml 11/27/16 08:00 11/27/16 08:29 Duoneb 0.5 Mg-3 Mg/3 Ml Soln INHALATION 3 ml RT-QID GAYLE Administration Aspirin 325 mg 11/28/16 09:00 Aspirin PO DAILY [facility] Nitroglycerin 1 inch 11/27/16 12:00 Nitro-Bid Oint TOPICAL Q6HR [facility] Nitroglycerin 0.4 mg 11/27/16 06:11 Nitrostat SUBLINGUAL Q5M PRN Chest Pain Intake and Output 11/26/16 11/27/16 11/27/16 22:59 06:59 14:59 Other: Weight 61.5 kg 11/27/16 04:54 11/27/16 04:54 EKG Interpretations (text) EKG reveals atrial paced rhythm. Assessment and Plan Plan: ASSESSMENT 1. Recent generator change for permanent pacemaker secondary to sick sinus syndrome. 2. Shortness of breath PLAN Obtain 2-D echo and Doppler study to evaluate ventricular function and structure. This does not present as cardiac related, most likely secondary to a pulmonary process. Thank you kindly for this consultation. She should follow up with Dr. Lowe at her regularly scheduled follow up. Nurse Practitioner note has been reviewed, I agree with a documented findings and plan of care. Patient was seen and examined.
--- NOTE | 2016-11-27 10:56 | ECHOF ---
Referral Reason:chest pain MEASUREMENTS -------- HEIGHT: 157.5 cm WEIGHT: 61.2 kg BP: 145/89 RVIDd: 2.4 cm (< 3.3) IVSd: 0.9 cm (0.6 - 1.1) LVIDd: 3.7 cm (3.9 - 5.3) LVPWd: 0.9 cm (0.6 - 1.1) IVSs: 1.2 cm LVIDs: 3.0 cm LVPWs: 1.3 cm LAESV Index (A-L): 18.56 ml/m Ao Diam: 2.7 cm (2.0 - 3.7) AV Cusp: 1.0 cm (1.5 - 2.6) LA Diam: 3.2 cm (2.7 - 3.8) MV EXCURSION: 13.666 mm (> 18.000) MV EF SLOPE: 43 mm/s (70 - 150) EPSS: 1.2 cm MV E [place]: 0.42 m/s MV DecT: 263 ms MV A [place]: 0.75 m/s MV E/A Ratio: 0.56 AR PHT: 825 ms RAP: 5.00 mmHg RVSP: 20.55 mmHg FINDINGS -------- Paced rhythm. This was a technically good study. LV size, wall thickness and systolic function are normal, with an EF greater than 55%. The left ventricular size is normal. The right ventricle is normal in size. Normal LA size by volume 22+/-6 ml/m2. The right atrial size is normal. There is mild aortic regurgitation. Mild mitral annular calcification present. Mild mitral regurgitation is present. Mild tricuspid regurgitation present. There is no evidence of pulmonary hypertension. The right ventricular systolic pressure, as measured by Doppler, is 20.55mmHg. Trace/mild (physiologic) pulmonic regurgitation. The aortic root size is normal. There is no pericardial effusion. CONCLUSIONS -------- 1. Paced rhythm. 2. There is no evidence of pulmonary hypertension. 3. The right ventricular systolic pressure, as measured by Doppler, is 20.55mmHg. 4. Trace/mild (physiologic) pulmonic regurgitation. 5. The aortic root size is normal. 6. There is no pericardial effusion. 7. This was a technically good study. 8. LV size, wall thickness and systolic function are normal, with an EF greater than 55%. 9. The left ventricular size is normal. 10. Normal LA size by volume 22+/-6 ml/m2. 11. There is mild aortic regurgitation. 12. Mild mitral annular calcification present. 13. Mild mitral regurgitation is present. 14. Mild tricuspid regurgitation present. PULLING MACHINE OPERATOR: Christina Escalona RDCS
[2016-11-27] MEDS ORDERED: NITROGLYCERIN OINT 1 INCH/GM PACKET TOPICAL SCH (12:00)
[2016-11-27 12:04] VITALS: BP 112/57
[2016-11-27 12:36] LABS: Creatine Kinase 57 U/L (30-135)
[2016-11-27 12:49] LABS: Creatine Kinase MB 0.7 ng/mL (0.0-2.4); Troponin I <0.012 ng/mL (0.000-0.034)
[2016-11-27 16:26] VITALS: PULSE 68
--- NOTE | 2016-11-27 20:07 | P.HPIM ---
History of Present Illness H&P Date: 11/27/16 (this document is going to be history and physical and discharge summary.) Chief Complaint: substernal chest pain 68-year-old pleasant female patient of Dr. Laws with history of RA ,kidney stones, GERD, thyroid disorder, history of sick sinus syndrome status post pacemaker hypothyroidism and asthma along with hypertension. Patient recently underwent a new lead insulation and generator change with Dr. Lowe on . Patient presented to ED with complaints of cough and substernal discomfort. she decided to come to the ED for evaluation as patient had a recent lead change. EKG revealed atrial paced rhythm with negative troponin. Patient denied any chest pain, dizziness, palpitation, nausea or vomiting. Denies any history of smoking. On evaluation in the morning the patient, felt better, echo was ordered to evaluate her mental function and structure with EF of greater than 55% with normal left ventricle size and pressures. Patient was seen by Dr. Schulz who felt that the patient's symptoms were noncardiac in origin. Patient was discharged on Protonix 40 mg daily for GERD and was told to follow-up with primary care physician for possible endoscopy to rule out gastritis as outpatient Review of Systems Constitutional: Denies anorexia, Denies chills, Denies chronic pain, Denies fatigue, Denies fever, Denies lethargy, Denies malaise Eyes: denies discharge, denies photophobia Ears: deny: decreased hearing Ears, nose, mouth and throat: Denies ant. neck pain, Denies dysphagia, Denies epistaxis, Denies headache, Denies nasal discharge, Denies nose pain, Denies odynophagia Cardiovascular: Denies chest pain, Denies dyspnea on exertion, Denies high blood pressure, Denies leg edema, Denies palpitations, Denies shortness of breath Respiratory: Reports cough, Denies dyspnea, Denies hemoptysis, Denies home oxygen, Denies wheezing Gastrointestinal: Reports heartburn, Reports indigestion, Denies change in bowel habits, Denies coffee ground emesis, Denies hematemesis, Denies hematochezia, Denies loss of appetite, Denies melena, Denies nausea, Denies vomiting Genitourinary: Denies hematuria, Denies urge incontinence, Denies urgency, Denies urinary frequency Musculoskeletal: Denies limitation of motion, Denies morning stiffness, Denies muscle cramps Neurological: Denies confusion, Denies double vision, Denies motor disturbance, Denies numbness, Denies seizures Past Medical History Past Medical History: Asthma, Eye Disorder, GERD/Reflux, Osteoarthritis (OA), Pneumonia, Rheumatoid Arthritis (RA), Thyroid Disorder Additional Past Medical History / Comment(s): Recent pneumonia, SSS with pacer, arthritis bilateral hands, shoulders, neck and feet, hypothyroid, bilateral glaucoma, bilateral carpal tunnel syndrome. History of Any Multi-Drug Resistant Organisms: None Reported Past Surgical History: Appendectomy, Orthopedic Surgery, Pacemaker Additional Past Surgical History / Comment(s): Pacemaker, generator changes with last time being 10/30/16, kidney stone removal, bilateral eye surgery for glaucoma, colonoscopy, R foot hammer toe. Past Anesthesia/Blood Transfusion Reactions: No Reported Reaction Type of Cardiac Device: Permanent Pacemaker Device Placement Date:: 02/15/01 Smoking Status: Former smoker - Past Family History Father Family Medical History: Asthma, Cancer Additional Family Medical History / Comment(s): Father from prostate cancer at the age of 66yrs. Mother Family Medical History: Cancer Additional Family Medical History / Comment(s): Mother had lung cancer. She was a nonsmoker but exposed to 2nd hand smoke. She at the age of 51 yrs form the lung cancer and other "complications." Medications and Allergies Home Medications Medication Instructions Recorded Confirmed Type Etanercept [Enbrel] 50 mg SQ TU 09/09/13 11/27/16 History Folic Acid 1 mg PO DAILY 09/09/13 11/27/16 History Metoprolol Tartrate [Lopressor] 25 mg PO BID 09/09/13 11/27/16 History Oxybutynin Chloride [Ditropan] 5 mg PO BID 09/09/13 11/27/16 History Gabapentin [Neurontin] 100 mg PO HS 05/17/14 11/27/16 History HYDROcodone/APAP 7.5-325MG [[place] 1 tab PO Q6HR PRN 10/23/16 11/27/16 History 7.5-325] ALPRAZolam [Xanax] 0.5 mg PO BID PRN 10/27/16 11/27/16 History Citalopram Hydrobromide [CeleXA] 10 mg PO DAILY 10/27/16 11/27/16 History Latanoprost Ophth [Xalatan 0.005%] 1 drops BOTH EYES HS 10/27/16 11/27/16 History Levothyroxine Sodium [Synthroid] 125 mcg PO DAILY 10/27/16 11/27/16 History Loratadine 10 mg PO DAILY 10/27/16 11/27/16 History Multivit-Min/FA/Lycopen/Lutein 1 each PO DAILY 10/27/16 11/27/16 History [Centrum Silver Tablet] traZODone HCL 100 mg PO DAILY@1900 10/27/16 11/27/16 History Pantoprazole Sodium [Protonix] 40 mg PO DAILY #30 tablet. 11/27/16 Rx Allergies Allergy/AdvReac Type Severity Reaction Status Date / Time codeine Allergy Rash/Hives Verified 11/27/16 08:05 sulfamethoxazole Allergy Rash/Hives Verified 11/27/16 08:05 [From Bactrim] trimethoprim [From Bactrim] Allergy Rash/Hives Verified 11/27/16 08:05 Physical Exam Vitals: Vital Signs Temp Pulse Pulse Resp BP BP Pulse Ox 11/27/16 16:11 68 11/27/16 16:01 66 11/27/16 13:07 68 11/27/16 12:56 68 11/27/16 12:00 98.1 F 69 18 112/57 98 11/27/16 08:39 60 11/27/16 08:29 64 11/27/16 06:53 98.1 F 61 18 145/89 99 11/27/16 06:30 98.2 F 60 18 129/80 99 11/27/16 05:19 60 11/27/16 05:10 59 L 18 129/86 99 11/27/16 05:08 60 11/27/16 04:34 98.7 F 64 18 150/80 96 Intake and Output 11/27/16 11/27/16 11/27/16 06:59 14:59 22:59 Intake Total 920 Balance 920 Intake: Oral 920 Other: Weight 61.5 kg - Constitutional General appearance: average body habitus, cooperative - EENT Eyes: EOMI, PERRLA, normal appearance ENT: normal oropharynx - Neck Neck: lymphadenopathy, normal ROM Carotids: bilateral: upstroke normal Thyroid: negative: normal size - Respiratory Respiratory: bilateral: CTA, negative: dullness, rales, rhonchi - Cardiovascular Rhythm: regular Heart sounds: normal: S1, S2 Abnormal Heart Sounds: no systolic murmur, no diastolic murmur ankle Peripheral Edema: bilateral: None dorsalis pedis Peripheral Pulses: bilateral: Normal - Gastrointestinal General gastrointestinal: no hepatomegaly, normal bowel sounds, soft, no tenderness - Integumentary Integumentary: no pale, no rash - Neurologic Neurologic: CNII-XII intact - Musculoskeletal Musculoskeletal: gait normal - Psychiatric Psychiatric: A&O x's 3, appropriate affect Results CBC & Chem 7: 11/27/16 04:54 11/27/16 04:54 Labs: Abnormal Lab Results - Last 24 Hours (Table) 11/27/16 Range/Units 04:54 Glucose 112 H (74-99) mg/dL Thrombosis Risk Factor Assmnt - DVT/VTE Prophylaxis DVT/VTE Prophylaxis: Mechanical Prophylaxis ordered - Choose All That Apply Any of the Below Risk Factors Present?: Yes Other Risk Factors: Yes Each Risk Factor Represents 2 Points: Age 61-74 years Other congenital or acquired thrombophilia - If yes, enter type in comment: No Thrombosis Risk Factor Assessment Total Risk Factor Score: 2 Thrombosis Risk Factor Assessment Level: Low Risk Assessment and Plan Plan: #1 chest discomfort likely atypical in nature. Echo ordered which was negative for any ventricular dysfunction with normal EF. Continue metoprolol. Cardiology consult that the symptoms were noncardiac in nature. Patient discharged on protonic 40 mg by mouth daily with further instruction to follow with primary care physician #2 urinary incontinence continue oxybutynin 5 mg twice a day #3 GERD- patient takes Zantac at home. Switch to protonic 40 mg by mouth daily #4 rheumatoid arthritis on etanercept, controlled #5 depression continue citalopram and trazodone at home dose #6 neuropathy continue gabapentin at home dose #7 ALLERGIC rhinitis continue loratadine at home dose #8 anxiety continue Xanax as needed #9 hypothyroidism continue levothyroxine #10 osteoarthritis continue [place] 7.5 mg every 6 hours when necessary needed for pain #11 DVT prophylaxis mechanical prophylaxis with LYNETTE hose while inpatient #12 . Disposition- home today Follow up with primary care physician in one week for management of GERD and possible endoscopy
[2016-11-28] MEDS ORDERED: ASPIRIN 325 MG TAB PO SCH (09:00)
== END 2016-11-27 16:18 | disposition home or self-care (01) ==
LOC: EC 04:32 → 3OBS 06:10
PROVIDERS: ADMIT Internal Medicine; ATTEND Internal Medicine
DX: R07.89 Other chest pain (principal); Z95.0 Presence of cardiac pacemaker; Z87.891 Personal history of nicotine dependence; R05 Cough; R12 Heartburn; R06.02 Shortness of breath; K21.9 Gastro-esophageal reflux disease without esophagitis; R32 Unspecified urinary incontinence; M06.9 Rheumatoid arthritis, unspecified; F32.9 Major depressive disorder, single episode, unspecified; G62.9 Polyneuropathy, unspecified; M19.042 Primary osteoarthritis, left hand; M19.041 Primary osteoarthritis, right hand; M19.012 Primary osteoarthritis, left shoulder; M19.011 Primary osteoarthritis, right shoulder; M19.072 Primary osteoarthritis, left ankle and foot; M19.071 Primary osteoarthritis, right ankle and foot; E03.9 Hypothyroidism, unspecified; M47.9 Spondylosis, unspecified; H40.9 Unspecified glaucoma; I10 Essential (primary) hypertension; Z79.899 Other long term (current) drug therapy; Z88.2 Allergy status to sulfonamides; Z88.5 Allergy status to narcotic agent; Z88.1 Allergy status to other antibiotic agents; Z87.01 Personal history of pneumonia (recurrent); F41.9 Anxiety disorder, unspecified; Z80.42 Family history of malignant neoplasm of prostate; Z80.1 Family history of malignant neoplasm of trachea, bronchus and lung; Z87.442 Personal history of urinary calculi; J45.909 Unspecified asthma, uncomplicated
CPT/HCPCS: 99285; 36415; 94640 ×2; 93005; 93306; 80053; 82550; 82553; 83735; 84484; 85027; 85610; 85730; 71020; G0378

== ENCOUNTER 2017-03-29 13:14 | Emergency (ER) | payer OTHER, MEDICARE ==
[2017-03-29] MEDS ORDERED: IBUPROFEN 600 MG TAB PO STA (13:25)
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
[2017-03-29 15:12] VITALS: BP 133/86; PULSE 65; RESP 16; TEMP 98.4
== END 2017-03-29 15:36 | disposition home or self-care (01) ==
LOC: EC 13:14
DX: S16.1XXA Strain of muscle, fascia and tendon at neck level, initial encounter (principal); S20.219A Contusion of unspecified front wall of thorax, initial encounter; R40.2412 Glasgow coma scale score 13-15, at arrival to emergency department; K21.9 Gastro-esophageal reflux disease without esophagitis; E03.9 Hypothyroidism, unspecified; F41.9 Anxiety disorder, unspecified; Z95.0 Presence of cardiac pacemaker; Z86.69 Personal history of other diseases of the nervous system and sense organs; Z87.891 Personal history of nicotine dependence; Z79.899 Other long term (current) drug therapy; Z88.5 Allergy status to narcotic agent; Z88.2 Allergy status to sulfonamides; V59.40XA Driver of pick-up truck or van injured in collision with unspecified motor vehicles in traffic accident, initial encounter; Y92.410 Unspecified street and highway as the place of occurrence of the external cause
CPT/HCPCS: 72050; 99284

== ENCOUNTER → 2017-05-20 | Outpatient (CLI) | payer MEDICARE, OTHER ==
--- NOTE | 2017-05-22 10:55 | MM ---
Reason for exam: screening (asymptomatic). Last mammogram was performed 2 years and 5 months ago. History: Patient is postmenopausal. Physical Findings: A clinical breast exam by your physician is recommended on an annual basis and results should be correlated with mammographic findings. MG Screening Mammo w CAD Bilateral CC and MLO view(s) were taken. Prior study comparison: December 06, 2014, bilateral MG diagnostic mammo w CAD [facility]. May 31, 2014, left breast MG work up mamm w CAD LT. There are scattered fibroglandular densities. No suspicious abnormality in the right breast. Left cardiac device obscures portions of the superior left breast. Subcentimeter focal asymmetry upper outer quadrant left breast at middle depth. ASSESSMENT: Incomplete: need additional imaging evaluation, BI-RAD 0 RECOMMENDATION: Special view mammogram of the left breast. If lesion persists on supplemental views, image directed ultrasound is recommended. [facility] will attempt to contact patient to return for supplemental views and ultrasound if indicated.
== END | disposition home or self-care (01) ==
LOC: RADMAMWWP 15:09
PROVIDERS: ATTEND Internal Medicine
DX: Z12.31 Encounter for screening mammogram for malignant neoplasm of breast (principal); Z68.24 Body mass index [BMI] 24.0-24.9, adult; R92.2 Inconclusive mammogram
CPT/HCPCS: 77067

== ENCOUNTER → 2017-05-27 | Outpatient (CLI) | payer MEDICARE, OTHER ==
--- NOTE | 2017-05-27 15:10 | MM ---
Reason for exam: additional evaluation requested from abnormal screening. Last mammogram was performed less than 1 month ago. History: Patient is postmenopausal. Physical Findings: Nurse did not find any significant physical abnormalities on exam. MG 3D Work Up W/Cad LT Spot compression CC, spot compression MLO, and LM view(s) were taken of the left breast. Prior study comparison: May 20, 2017, bilateral MG screening mammo w CAD. December 06, 2014, bilateral MG diagnostic mammo w CAD [facility]. There are scattered fibroglandular densities. The finding disperses on additional 3D views. Precautionary 6 month follow up recommended. These results were verbally communicated with the patient and result sheet given to the patient on 05/27/17. ASSESSMENT: Probably benign, BI-RAD 3 RECOMMENDATION: Follow-up diagnostic mammogram of the left breast in 6 months.
== END | disposition home or self-care (01) ==
LOC: RADMAMWWP 14:14
PROVIDERS: ATTEND Internal Medicine
DX: R92.8 Other abnormal and inconclusive findings on diagnostic imaging of breast (principal)
CPT/HCPCS: 77065; G0279

== ENCOUNTER 2017-08-11 22:02 | Emergency (ER) | payer MEDICARE, OTHER ==
[2017-08-11 22:18] VITALS: RESP 18
[2017-08-11] MEDS ORDERED: ACETAMINOPHEN TAB 500 MG TAB PO STA (22:55)
--- NOTE | 2017-08-11 23:08 | ED ---
General Adult HPI - General Chief complaint: Upper Respiratory Infection Stated complaint: Fever/103/Ear Pain Time Seen by Provider: 08/11/17 22:32 Source: patient Mode of arrival: ambulatory Limitations: no limitations - History of Present Illness Initial comments: 72-year-old female patient presents to emergency department today for evaluation of fever, cough, sore throat, and bilateral ear pain. Patient states that symptoms started a couple of days ago. Patient states that she was very chilled today. She denies any sputum production with the cough. She states that she is having mid to upper back pain. She denies any chest pain. States that she has been becoming winded more easily. She is a former smoker but did quit in her 30s. States she is exposed to secondhand smoke. Patient states that she has been having intermittent difficulty hearing from the left ear. States that the pain for many years radiates down into her throat. Denies any drainage from the ears. Denies any recent swimming. States she has been getting dizzy when she bends over. States that she has been urinating more frequent recently but denies any hematuria, dysuria, urinary urgency. Denies any nausea or vomiting. States that she has had several episodes of diarrhea. Patient denies any recent rash, numbness, tingling, weakness, headache, visual changes, or any other complaints. - Related Data Home Medications Medication Instructions Recorded Confirmed Metoprolol Tartrate [Lopressor] 25 mg PO BID 09/09/13 08/11/17 Oxybutynin Chloride [Ditropan] 5 mg PO BID 09/09/13 08/11/17 Gabapentin [Neurontin] 100 mg PO TID 05/17/14 08/11/17 HYDROcodone/APAP 7.5-325MG [[place] 1 tab PO Q6HR PRN 10/23/16 08/11/17 7.5-325] Levothyroxine Sodium [Synthroid] 125 mcg PO DAILY 10/27/16 08/11/17 traZODone HCL 100 mg PO DAILY@1900 10/27/16 08/11/17 Folic Acid 1 mg PO DAILY 03/29/17 08/11/17 Methotrexate Sodium [Methotrexate] 12.5 mg PO WE 03/29/17 08/11/17 Ranitidine HCl [Zantac] 150 mg PO BID 03/29/17 08/11/17 rOPINIRole HCL [Requip] 0.5 mg PO HS 08/11/17 08/11/17 Allergies Allergy/AdvReac Type Severity Reaction Status Date / Time codeine Allergy Rash/Hives Verified 08/11/17 22:32 sulfamethoxazole Allergy Rash/Hives Verified 08/11/17 22:32 [From Bactrim] trimethoprim [From Bactrim] Allergy Rash/Hives Verified 08/11/17 22:32 Review of Systems ROS Statement: Those systems with pertinent positive or pertinent negative responses have been documented in the HPI. ROS Other: All systems not noted in ROS Statement are negative. Past Medical History Past Medical History: Asthma, Eye Disorder, GERD/Reflux, Osteoarthritis (OA), Pneumonia, Rheumatoid Arthritis (RA), Thyroid Disorder Additional Past Medical History / Comment(s): SSS with pacer, arthritis bilateral hands, shoulders, neck and feet, hypothyroid, bilateral glaucoma, bilateral carpal tunnel syndrome. History of Any Multi-Drug Resistant Organisms: None Reported Past Surgical History: Appendectomy, Orthopedic Surgery, Pacemaker Additional Past Surgical History / Comment(s): Pacemaker, generator changes with last time being 10/30/16, kidney stone removal, bilateral eye surgery for glaucoma, colonoscopy, R foot hammer toe. Past Anesthesia/Blood Transfusion Reactions: No Reported Reaction Type of Cardiac Device: Permanent Pacemaker Device Placement Date:: 02/15/01 Past Psychological History: Anxiety Smoking Status: Former smoker Past Alcohol Use History: None Reported Past Drug Use History: None Reported - Past Family History Father Family Medical History: Asthma, Cancer Additional Family Medical History / Comment(s): Father from prostate cancer at the age of 66yrs. Mother Family Medical History: Cancer Additional Family Medical History / Comment(s): Mother had lung cancer. She was a nonsmoker but exposed to 2nd hand smoke. She at the age of 53 yrs form the lung cancer and other "complications." General Exam Limitations: no limitations General appearance: alert, in no apparent distress, other (This is a well- developed, well-nourished elderly female patient in no acute distress. Vital signs upon presentation are temperature 102.2F, pulse 62, respirations 18, blood pressure 117/73, pulse ox 97% on room air.) Eye exam: Present: normal appearance, PERRL, EOMI. Absent: scleral icterus, conjunctival injection, periorbital swelling ENT exam: Present: normal exam, mucous membranes moist, TM's normal bilaterally (No mastoid tenderness), normal external ear exam. Absent: normal oropharynx ( Pharyngeal erythema) Respiratory exam: Present: normal lung sounds bilaterally. Absent: respiratory distress, wheezes, rales, rhonchi, stridor Cardiovascular Exam: Present: regular rate, normal rhythm, normal heart sounds. Absent: systolic murmur, diastolic murmur, rubs, gallop, clicks GI/Abdominal exam: Present: soft, normal bowel sounds. Absent: distended, tenderness, guarding, rebound, rigid Neurological exam: Present: alert, oriented X3, CN II-XII intact Psychiatric exam: Present: normal affect, normal mood Skin exam: Present: warm, dry, intact, normal color. Absent: rash Course Vital Signs 08/11/17 08/12/17 08/12/17 22:13 00:34 01:39 Temperature 102.2 F H 100.6 F H 99.0 F Pulse Rate 62 60 61 Respiratory 18 18 18 Rate Blood Pressure 117/73 99/59 97/57 O2 Sat by Pulse 97 96 97 Oximetry EKG Findings - EKG Comments: EKG Findings:: EKG obtained at 00 17 shows atrial paced rhythm with a prolonged QT interval. Ventricular rate is 68, VA interval 190, QRS duration of 86, QT 508, QTC 508. No evidence of ST elevation or depression. Medical Decision Making - Medical Decision Making 72-year-old female patient presented to the emergency department today for evaluation of fever, cough, sore throat, ear pain. Physical examination did reveal clear equal lung sounds. Throat was erythematous but no exudate or lesions are noted. Tympanic membranes are within normal limits. Labs reviewed and are unremarkable. Patient's white blood cell count was negative. Lactic acid was normal. Chest x-ray showed no acute cardio pulmonary process. Urinalysis did show 48 white cells and trace bacteria we will send this for culture. I did discuss results with the patient, she is feeling better after receiving Tylenol. As labs are normal and patient does have symptoms of viral upper respiratory infection and will discharge at this time. She is instructed follow with her primary care physician for recheck tomorrow. Return parameters discussed in detail. She verbalizes understanding and agrees with this plan. - Lab Data Result diagrams: 08/11/17 22:30 08/11/17 22:30 Lab Results 08/11/17 08/11/17 08/11/17 Range/Units 22:30 22:30 22:30 WBC 7.5 (3.8-10.6) k/uL RBC 4.14 (3.80-5.40) m/uL Hgb 13.3 (11.4-16.0) gm/dL Hct 38.7 (34.0-46.0) % MCV 93.5 (80.0-100.0) fL MCH 32.2 (25.0-35.0) pg MCHC 34.5 (31.0-37.0) g/dL RDW 14.9 (11.5-15.5) % Plt Count 166 (150-450) k/uL Neutrophils % 73 % Lymphocytes % 15 % Monocytes % 7 % Eosinophils % 3 % Basophils % 0 % Neutrophils # 5.4 (1.3-7.7) k/uL Lymphocytes # 1.1 (1.0-4.8) k/uL Monocytes # 0.5 (0-1.0) k/uL Eosinophils # 0.2 (0-0.7) k/uL Basophils # 0.0 (0-0.2) k/uL PT (9.0-12.0) sec INR (<1.2) APTT (22.0-30.0) sec Sodium 138 (137-145) mmol/L Potassium 4.2 (3.5-5.1) mmol/L Chloride 101 (98-107) mmol/L Carbon Dioxide 27 (22-30) mmol/L Anion Gap 10 mmol/L BUN 11 (7-17) mg/dL Creatinine 0.74 (0.52-1.04) mg/dL Est GFR (CKD-EPI)AfAm >90 (>60 ml/min/1.73 sqM) Est GFR (CKD-EPI)NonAf 81 (>60 ml/min/1.73 sqM) Glucose 98 (74-99) mg/dL Plasma Lactic Acid Seven 1.0 (0.7-2.0) mmol/L Calcium 9.1 (8.4-10.2) mg/dL Total Bilirubin 0.3 (0.2-1.3) mg/dL AST 32 (14-36) U/L ALT 45 (9-52) U/L Alkaline Phosphatase 66 (38-126) U/L Total Creatine Kinase (30-135) U/L CK-MB (CK-2) (0.0-2.4) ng/mL CK-MB (CK-2) Rel Index Troponin I (0.000-0.034) ng/mL Total Protein 5.9 L (6.3-8.2) g/dL Albumin 3.6 (3.5-5.0) g/dL Urine Color Urine Appearance (Clear) Urine pH (5.0-8.0) Ur Specific [place] (1.001-1.035) Urine Protein (Negative) Urine Glucose (UA) (Negative) Urine Ketones (Negative) Urine Blood (Negative) Urine Nitrite (Negative) Urine Bilirubin (Negative) Urine Urobilinogen (<2.0) mg/dL Ur Leukocyte Esterase (Negative) Urine RBC (0-5) /hpf Urine WBC (0-5) /hpf Urine WBC Clumps (None) /hpf Ur Squamous Epith Cells (0-4) /hpf Ur Transition Epith Cell (0-1) /hpf Urine Bacteria (None) /hpf Urine Mucus (None) /hpf Influ A (H1N1/09) PCR (Not Detectd) Influenza A RNA (PCR) (Not Detectd) Influenza B (RT-PCR) (Not Detectd) 08/11/17 08/11/17 08/11/17 Range/Units 22:30 22:30 22:30 WBC (3.8-10.6) k/uL RBC (3.80-5.40) m/uL Hgb (11.4-16.0) gm/dL Hct (34.0-46.0) % MCV (80.0-100.0) fL MCH (25.0-35.0) pg MCHC (31.0-37.0) g/dL RDW (11.5-15.5) % Plt Count (150-450) k/uL Neutrophils % % Lymphocytes % % Monocytes % % Eosinophils % % Basophils % % Neutrophils # (1.3-7.7) k/uL Lymphocytes # (1.0-4.8) k/uL Monocytes # (0-1.0) k/uL Eosinophils # (0-0.7) k/uL Basophils # (0-0.2) k/uL PT 9.9 (9.0-12.0) sec INR 1.0 (<1.2) APTT 24.0 (22.0-30.0) sec Sodium (137-145) mmol/L Potassium (3.5-5.1) mmol/L Chloride (98-107) mmol/L Carbon Dioxide (22-30) mmol/L Anion Gap mmol/L BUN (7-17) mg/dL Creatinine (0.52-1.04) mg/dL Est GFR (CKD-EPI)AfAm (>60 ml/min/1.73 sqM) Est GFR (CKD-EPI)NonAf (>60 ml/min/1.73 sqM) Glucose (74-99) mg/dL Plasma Lactic Acid Seven (0.7-2.0) mmol/L Calcium (8.4-10.2) mg/dL Total Bilirubin (0.2-1.3) mg/dL AST (14-36) U/L ALT (9-52) U/L Alkaline Phosphatase (38-126) U/L Total Creatine Kinase 79 (30-135) U/L CK-MB (CK-2) 0.8 (0.0-2.4) ng/mL CK-MB (CK-2) Rel Index 1.0 Troponin I 0.020 (0.000-0.034) ng/mL Total Protein (6.3-8.2) g/dL Albumin (3.5-5.0) g/dL Urine Color Light Yellow Urine Appearance Clear (Clear) Urine pH 6.0 (5.0-8.0) Ur Specific [place] 1.008 (1.001-1.035) Urine Protein 3+ H (Negative) Urine Glucose (UA) Negative (Negative) Urine Ketones Negative (Negative) Urine Blood Small H (Negative) Urine Nitrite Negative (Negative) Urine Bilirubin Negative (Negative) Urine Urobilinogen <2.0 (<2.0) mg/dL Ur Leukocyte Esterase Moderate H (Negative) Urine RBC 3 (0-5) /hpf Urine WBC 48 H (0-5) /hpf Urine WBC Clumps Rare H (None) /hpf Ur Squamous Epith Cells 1 (0-4) /hpf Ur Transition Epith Cell <1 (0-1) /hpf Urine Bacteria Rare H (None) /hpf Urine Mucus Rare H (None) /hpf Influ A (H1N1/09) PCR (Not Detectd) Influenza A RNA (PCR) (Not Detectd) Influenza B (RT-PCR) (Not Detectd) 08/11/17 Range/Units 23:23 WBC (3.8-10.6) k/uL RBC (3.80-5.40) m/uL Hgb (11.4-16.0) gm/dL Hct (34.0-46.0) % MCV (80.0-100.0) fL MCH (25.0-35.0) pg MCHC (31.0-37.0) g/dL RDW (11.5-15.5) % Plt Count (150-450) k/uL Neutrophils % % Lymphocytes % % Monocytes % % Eosinophils % % Basophils % % Neutrophils # (1.3-7.7) k/uL Lymphocytes # (1.0-4.8) k/uL Monocytes # (0-1.0) k/uL Eosinophils # (0-0.7) k/uL Basophils # (0-0.2) k/uL PT (9.0-12.0) sec INR (<1.2) APTT (22.0-30.0) sec Sodium (137-145) mmol/L Potassium (3.5-5.1) mmol/L Chloride (98-107) mmol/L Carbon Dioxide (22-30) mmol/L Anion Gap mmol/L BUN (7-17) mg/dL Creatinine (0.52-1.04) mg/dL Est GFR (CKD-EPI)AfAm (>60 ml/min/1.73 sqM) Est GFR (CKD-EPI)NonAf (>60 ml/min/1.73 sqM) Glucose (74-99) mg/dL Plasma Lactic Acid Seven (0.7-2.0) mmol/L Calcium (8.4-10.2) mg/dL Total Bilirubin (0.2-1.3) mg/dL AST (14-36) U/L ALT (9-52) U/L Alkaline Phosphatase (38-126) U/L Total Creatine Kinase (30-135) U/L CK-MB (CK-2) (0.0-2.4) ng/mL CK-MB (CK-2) Rel Index Troponin I (0.000-0.034) ng/mL Total Protein (6.3-8.2) g/dL Albumin (3.5-5.0) g/dL Urine Color Urine Appearance (Clear) Urine pH (5.0-8.0) Ur Specific [place] (1.001-1.035) Urine Protein (Negative) Urine Glucose (UA) (Negative) Urine Ketones (Negative) Urine Blood (Negative) Urine Nitrite (Negative) Urine Bilirubin (Negative) Urine Urobilinogen (<2.0) mg/dL Ur Leukocyte Esterase (Negative) Urine RBC (0-5) /hpf Urine WBC (0-5) /hpf Urine WBC Clumps (None) /hpf Ur Squamous Epith Cells (0-4) /hpf Ur Transition Epith Cell (0-1) /hpf Urine Bacteria (None) /hpf Urine Mucus (None) /hpf Influ A (H1N1/09) PCR Not detected (Not Detectd) Influenza A RNA (PCR) Not Detected (Not Detectd) Influenza B (RT-PCR) Not Detected (Not Detectd) - Radiology Data Radiology results: report reviewed, image reviewed Two-view x-ray of the chest is obtained. There is no heart failure nor confluent pneumonic infiltrate. There is right upper lateral rib deformity and mild pleural thickening. There is no pleural effusion. There is left axillar pacemaker with a lead tips in the right ventricle. Thoracic spine is intact. Impression by Dr. Banks shows no active cardiopulmonary disease. No change. Disposition Clinical Impression: Viral upper respiratory illness Disposition: HOME SELF-CARE Condition: Good Instructions: Upper Respiratory Infection (ED) Additional Instructions: Increase fluids. Take Tylenol for pain and fever control. Follow-up with your doctor for recheck in 1-2 days. Return here immediately for any new, worsening , or concerning symptoms. Is patient prescribed a controlled substance at d/c from ED?: No Referrals: Ro Root MD [Primary Care Provider] - 1-2 days Time of Disposition: 01:32
[2017-08-11] MEDS: SODIUM CHLORIDE 0.9% 500 ML IV SCH ×2 (23:33→23:34)
[2017-08-11 23:57] LABS: Basophils % (A) 0 %; Eosinophils # (A) 0.2 k/uL (0-0.7); Eosinophils % (A) 3 %; HCT 38.7 % (34.0-46.0); HGB 13.3 gm/dL (11.4-16.0); Lymphocytes # (A) 1.1 k/uL (1.0-4.8); Lymphocytes % (A) 15 %; MCH 32.2 pg (25.0-35.0); MCHC 34.5 g/dL (31.0-37.0); MCV 93.5 fL (80.0-100.0); Mean Platelet Volume 7.1; Monocytes # (A) 0.5 k/uL (0-1.0); Monocytes % (A) 7 %; Neutrophils # (A) 5.4 k/uL (1.3-7.7); Neutrophils % (A) 73 %; Platelet Count 166 k/uL (150-450); RBC 4.14 m/uL (3.80-5.40); RDW 14.9 % (11.5-15.5); WBC 7.5 k/uL (3.8-10.6)
--- NOTE | 2017-08-11 23:57 | XR ---
EXAMINATION TYPE: XR chest 2V DATE OF EXAM: 08/11/2017 COMPARISON: 11/27/2016 HISTORY: Asthma TECHNIQUE: Frontal and lateral views of the chest are obtained. FINDINGS: There is no heart failure nor confluent pneumonic infiltrate. There is right upper lateral rib deformity and mild pleural thickening. There is no pleural effusion. There is left axillary pace maker with the lead tips in the right ventricle. Thoracic spine is intact. IMPRESSION: No active cardiopulmonary disease. No change.
[2017-08-11 23:58] LABS: Prothrombin Time 9.9 sec (9.0-12.0)
[2017-08-11 23:59] LABS: ALT 45 U/L (9-52); AST 32 U/L (14-36); Albumin 3.6 g/dL (3.5-5.0); Alkaline Phosphatase 66 U/L (38-126); Anion Gap 10 mmol/L; Blood Urea Nitrogen 11 mg/dL (7-17); Calcium 9.1 mg/dL (8.4-10.2); Carbon Dioxide 27 mmol/L (22-30); Chloride 101 mmol/L (98-107); Glucose 98 mg/dL (74-99); Potassium 4.2 mmol/L (3.5-5.1); Sodium 138 mmol/L (137-145); Total Bilirubin 0.3 mg/dL (0.2-1.3); Total Protein 5.9 g/dL (6.3-8.2)
[2017-08-12 00:10] LABS: Appearance,Urine Clear (Clear); Bacteria,Urine Rare /hpf; Bilirubin,Urine Negative (Negative); Blood,Urine Small (Negative); Color,Urine Light Yellow; Glucose,Urine (UA) Negative (Negative); Ketones,Urine Negative (Negative); Leukocyte Esterase,Urine Moderate (Negative); Mucus,Urine Rare /hpf; Nitrite,Urine Negative (Negative); Protein,Urine 3+ (Negative); RBC,Urine 3 /hpf (0-5); Specific Gravity,Urine 1.008 (1.001-1.035); Squamous Epithelial Cell,Urine 1 /hpf (0-4); Transitional Epi Cells,Urine <1 /hpf (0-1); Urobilinogen,Urine <2.0 mg/dL (<2.0); WBC,Urine 48 /hpf (0-5)
[2017-08-12 00:25] LABS: Creatine Kinase MB 0.8 ng/mL (0.0-2.4); Troponin I 0.02 ng/mL (0.000-0.034)
[2017-08-12 01:42] VITALS: BP 97/57; PULSE 61; TEMP 99
== END 2017-08-12 01:45 | disposition home or self-care (01) ==
LOC: EC 22:02
DX: J06.9 Acute upper respiratory infection, unspecified (principal); K21.9 Gastro-esophageal reflux disease without esophagitis; R06.9 Unspecified abnormalities of breathing; M19.90 Unspecified osteoarthritis, unspecified site; E03.9 Hypothyroidism, unspecified; F41.9 Anxiety disorder, unspecified; Z87.891 Personal history of nicotine dependence; Z79.899 Other long term (current) drug therapy; Z88.2 Allergy status to sulfonamides; Z88.5 Allergy status to narcotic agent; Z95.0 Presence of cardiac pacemaker
CPT/HCPCS: 36415; 71046; 80053; 81001; 82550; 82553; 83605; 84484; 85025; 85610; 85730; 87040; 87086; 87502; 87503; 93005; 99284

== ENCOUNTER → 2017-10-05 | Outpatient (CLI) | payer MEDICARE, OTHER ==
[2017-10-05 16:28] LABS: HCT 37.3 % (34.0-46.0); HGB 12.4 gm/dL (11.4-16.0); MCH 31.6 pg (25.0-35.0); MCHC 33.4 g/dL (31.0-37.0); MCV 94.7 fL (80.0-100.0); Mean Platelet Volume 6.7; Platelet Count 207 k/uL (150-450); RBC 3.93 m/uL (3.80-5.40); RDW 15.2 % (11.5-15.5); WBC 7.4 k/uL (3.8-10.6)
[2017-10-05 16:40] LABS: Albumin 3.2 g/dL (3.5-5.0); Calcium 9.2 mg/dL (8.4-10.2); Total Bilirubin 0.3 mg/dL (0.2-1.3); Total Protein 5.5 g/dL (6.3-8.2)
== END | disposition home or self-care (01) ==
LOC: LABWHC1 15:46
PROVIDERS: ATTEND Internal Medicine Cardiovascular Disease
DX: I48.91 Unspecified atrial fibrillation (principal)
CPT/HCPCS: 36415; 80053; 85027

== ENCOUNTER 2018-06-06 19:06 | Emergency (ER) | payer MEDICARE, OTHER ==
[2018-06-06 19:12] VITALS: TEMP 98.1
--- NOTE | 2018-06-06 19:32 | ED ---
General Adult HPI - General Chief complaint: Extremity Problem,Nontraumatic Stated complaint: Leg swelling Time Seen by Provider: 06/06/18 19:20 Source: patient Mode of arrival: wheelchair Limitations: no limitations - History of Present Illness Initial comments: Dictation was produced using Sandvine dictation software. please excuse any grammatical, word or spelling errors. Chief Complaint: 73-year-old female presents with bilateral lower extremity edema and bilateral popliteal pain. History of Present Illness: Patient 73-year-old female. [facility] checked her to come to the emergency department. She initially went to [facility] because one of her nurse friends told her that she may have a blood clot. Patient has history of rheumatoid arthritis. Denies ever having had blood clot in the past. Denies any chest pain or shortness of breath. Patient states her legs have been swollen over the past 2-3 days. States that swelling initially presented in her hands. The ROS documented in this emergency department record has been reviewed and confirmed by me. Those systems with pertinent positive or negative responses have been documented in the HPI. All other systems are other negative and/or noncontributory. PHYSICAL EXAM: General Impression: Alert and oriented x3, not in acute distress HEENT: Normocephalic atraumatic, extra-ocular movements intact, pupils equal and reactive to light bilaterally, mucous membranes moist. Cardiovascular: Heart regular rate and rhythm, S1&S2 audible, no murmurs, rubs or gallops Chest: Lungs clear to auscultation bilaterally, no rhonchi, no wheeze, no rales Abdomen: Bowel sounds present, abdomen soft, non-tender, non-distended, no organomegaly Musculoskeletal: Pulses present and equal in all extremities, 2+ pitting edema bilaterally Motor: no focal deficits noted Neurological: CN II-XII grossly intact, no focal motor or sensory deficits noted Skin: Intact with no visualized rashes Psych: Normal affect and mood ED course: 73-year-old female presents with chief complaint of lower extremity swelling and other popliteal pain. Vital signs upon arrival are within acceptable limits. Clinical presentation does not suggest PE given the patient not complaining of any chest pain or shortness of breath. Laboratory evaluation obtained. CBC unremarkable. Metabolic panel is unremarkable. Patient is a troponin of 0.027. She has a prematurity peptide of 1330. Urinalysis is suggestive of urinary tract infection however patient not have any urinary symptoms. Pending urine culture. Patient told these results. Chest x-ray is unremarkable. Patient denies any chest pain or shortness of breath. Patient otherwise feels well. Patient denies any history of congestive heart failure. She does have a programming development project manager Dr. Lowe manages her pacemaker. Patient states she is able to manage as outpatient and will call for an appointment this week. This is reasonable option. Patient's slight troponin elevation is likely secondary to troponin leak. Patient to be discharge with a short course of Lasix therapy. She is also given potassium supplementation. Patient told to return to the emergency Department with any worsening symptoms. Patient understandable agreeable to disposition. EKG interpretation: Ventricular rate 60,. Interval to 20, care 70, QTc 468. No [place] prolongation, no QTC prolongation, no ST or T-wave changes noted. Overall, this EKG is unremarkable - Related Data Home Medications Medication Instructions Recorded Confirmed Metoprolol Tartrate [Lopressor] 25 mg PO BID 09/09/13 06/06/18 Oxybutynin Chloride [Ditropan] 5 mg PO BID 09/09/13 06/06/18 Gabapentin [Neurontin] 100 mg PO TID 05/17/14 06/06/18 HYDROcodone/APAP 7.5-325MG [[place] 1 tab PO BID PRN 10/23/16 06/06/18 7.5-325] Levothyroxine Sodium [Synthroid] 125 mcg PO DAILY 10/27/16 06/06/18 traZODone HCL 100 mg PO HS 10/27/16 06/06/18 Folic Acid 1 mg PO DAILY 03/29/17 06/06/18 Ranitidine HCl [Zantac] 150 mg PO BID 03/29/17 06/06/18 rOPINIRole HCL [Requip] 0.5 mg PO HS PRN 08/11/17 06/06/18 Apixaban [Eliquis] 5 mg PO BID 06/06/18 06/06/18 Cyclobenzaprine [Flexeril] 5 mg PO DAILY 06/06/18 06/06/18 Latanoprost [Xalatan 0.005%] 1 drop BOTH EYES HS 06/06/18 06/06/18 Previous Rx's Medication Instructions Recorded Furosemide [Lasix] 20 mg PO DAILY #10 tab 06/06/18 Potassium Chloride 20 meq PO DAILY #24 capsule.er 06/06/18 Allergies Allergy/AdvReac Type Severity Reaction Status Date / Time codeine Allergy Rash/Hives Verified 06/06/18 19:32 sulfamethoxazole AdvReac Nausea & Verified 06/06/18 19:32 [From Bactrim] Vomiting trimethoprim [From Bactrim] AdvReac Nausea & Verified 06/06/18 19:32 Vomiting Review of Systems ROS Statement: Those systems with pertinent positive or pertinent negative responses have been documented in the HPI. ROS Other: All systems not noted in ROS Statement are negative. Past Medical History Past Medical History: Asthma, Eye Disorder, GERD/Reflux, Osteoarthritis (OA), Pneumonia, Rheumatoid Arthritis (RA), Thyroid Disorder Additional Past Medical History / Comment(s): SSS with pacer, arthritis bi lateral hands, shoulders, neck and feet, hypothyroid, bilateral glaucoma, bilateral carpal tunnel syndrome. History of Any Multi-Drug Resistant Organisms: None Reported Past Surgical History: Appendectomy, Orthopedic Surgery, Pacemaker Additional Past Surgical History / Comment(s): Pacemaker, generator changes with last time being 10/30/16, kidney stone removal, bilateral eye surgery for glaucoma, colonoscopy, R foot hammer toe. Past Anesthesia/Blood Transfusion Reactions: No Reported Reaction Type of Cardiac Device: Permanent Pacemaker Device Placement Date:: 02/15/01 Past Psychological History: Anxiety Smoking Status: Former smoker Past Alcohol Use History: None Reported Past Drug Use History: None Reported - Past Family History Father Family Medical History: Asthma, Cancer Additional Family Medical History / Comment(s): Father from prostate cancer at the age of 66yrs. Mother Family Medical History: Cancer Additional Family Medical History / Comment(s): Mother had lung cancer. She was a nonsmoker but exposed to 2nd hand smoke. She at the age of 53 yrs form the lung cancer and other "complications." General Exam Limitations: no limitations Course Vital Signs 06/06/18 19:09 Temperature 98.1 F Pulse Rate 63 Respiratory 18 Rate Blood Pressure 142/92 O2 Sat by Pulse 97 Oximetry Medical Decision Making - Lab Data Result diagrams: 06/06/18 20:18 06/06/18 20:18 Lab Results 04/07/19 04/07/19 04/07/19 Range/Units 20:00 20:18 20:18 WBC 7.8 (3.8-10.6) k/uL RBC 4.29 (3.80-5.40) m/uL Hgb 13.3 (11.4-16.0) gm/dL Hct 38.7 (34.0-46.0) % MCV 90.2 (80.0-100.0) fL MCH 31.0 (25.0-35.0) pg MCHC 34.4 (31.0-37.0) g/dL RDW 15.1 (11.5-15.5) % Plt Count 260 (150-450) k/uL Neutrophils % 53 % Lymphocytes % 26 % Monocytes % 8 % Eosinophils % 8 % Basophils % 1 % Neutrophils # 4.2 (1.3-7.7) k/uL Lymphocytes # 2.0 (1.0-4.8) k/uL Monocytes # 0.7 (0-1.0) k/uL Eosinophils # 0.7 (0-0.7) k/uL Basophils # 0.0 (0-0.2) k/uL Sodium 140 (137-145) mmol/L Potassium 4.1 (3.5-5.1) mmol/L Chloride 107 (98-107) mmol/L Carbon Dioxide 31 H (22-30) mmol/L Anion Gap 2 mmol/L BUN 14 (7-17) mg/dL Creatinine 0.66 (0.52-1.04) mg/dL Est GFR (CKD-EPI)AfAm >90 (>60 ml/min/1.73 sqM) Est GFR (CKD-EPI)NonAf 87 (>60 ml/min/1.73 sqM) Glucose 100 H (74-99) mg/dL Calcium 8.5 (8.4-10.2) mg/dL Total Bilirubin 0.3 (0.2-1.3) mg/dL AST 29 (14-36) U/L ALT 22 (9-52) U/L Alkaline Phosphatase 77 (38-126) U/L Troponin I (0.000-0.034) ng/mL NT-Pro-B Natriuret Pep pg/mL Total Protein 4.6 L (6.3-8.2) g/dL Albumin 2.2 L (3.5-5.0) g/dL Urine Color Yellow Urine Appearance Clear (Clear) Urine pH 6.5 (5.0-8.0) Ur Specific [place] 1.030 (1.001-1.035) Urine Protein 3+ H (Negative) Urine Glucose (UA) Negative (Negative) Urine Ketones Negative (Negative) Urine Blood Moderate H (Negative) Urine Nitrite Negative (Negative) Urine Bilirubin Negative (Negative) Urine Urobilinogen 2.0 (<2.0) mg/dL Ur Leukocyte Esterase Trace H (Negative) Urine RBC 8 H (0-5) /hpf Urine WBC 31 H (0-5) /hpf Ur Squamous Epith Cells 1 (0-4) /hpf Hyaline Casts 59 H (0-2) /lpf Urine Mucus Occasional H (None) /hpf 06/06/18 06/06/18 Range/Units 20:18 20:18 WBC (3.8-10.6) k/uL RBC (3.80-5.40) m/uL Hgb (11.4-16.0) gm/dL Hct (34.0-46.0) % MCV (80.0-100.0) fL MCH (25.0-35.0) pg MCHC (31.0-37.0) g/dL RDW (11.5-15.5) % Plt Count (150-450) k/uL Neutrophils % % Lymphocytes % % Monocytes % % Eosinophils % % Basophils % % Neutrophils # (1.3-7.7) k/uL Lymphocytes # (1.0-4.8) k/uL Monocytes # (0-1.0) k/uL Eosinophils # (0-0.7) k/uL Basophils # (0-0.2) k/uL Sodium (137-145) mmol/L Potassium (3.5-5.1) mmol/L Chloride (98-107) mmol/L Carbon Dioxide (22-30) mmol/L Anion Gap mmol/L BUN (7-17) mg/dL Creatinine (0.52-1.04) mg/dL Est GFR (CKD-EPI)AfAm (>60 ml/min/1.73 sqM) Est GFR (CKD-EPI)NonAf (>60 ml/min/1.73 sqM) Glucose (74-99) mg/dL Calcium (8.4-10.2) mg/dL Total Bilirubin (0.2-1.3) mg/dL AST (14-36) U/L ALT (9-52) U/L Alkaline Phosphatase (38-126) U/L Troponin I 0.027 (0.000-0.034) ng/mL NT-Pro-B Natriuret Pep 1330 pg/mL Total Protein (6.3-8.2) g/dL Albumin (3.5-5.0) g/dL Urine Color Urine Appearance (Clear) Urine pH (5.0-8.0) Ur Specific [place] (1.001-1.035) Urine Protein (Negative) Urine Glucose (UA) (Negative) Urine Ketones (Negative) Urine Blood (Negative) Urine Nitrite (Negative) Urine Bilirubin (Negative) Urine Urobilinogen (<2.0) mg/dL Ur Leukocyte Esterase (Negative) Urine RBC (0-5) /hpf Urine WBC (0-5) /hpf Ur Squamous Epith Cells (0-4) /hpf Hyaline Casts (0-2) /lpf Urine Mucus (None) /hpf Disposition Clinical Impression: CHF (congestive heart failure) Disposition: HOME SELF-CARE Condition: Good Instructions (If sedation given, give patient instructions): Heart Failure (ER) Prescriptions: Furosemide [Lasix] 20 mg PO DAILY #10 tab Potassium Chloride 20 meq PO DAILY #24 capsule.er Is patient prescribed a controlled substance at d/c from ED?: No Referrals: Lowell Lowe MD [STAFF PHYSICIAN] - 1-2 days Time of Disposition: 21:42
[2018-06-06 20:29] LABS: Appearance,Urine Clear (Clear); Bilirubin,Urine Negative (Negative); Blood,Urine Moderate (Negative); Color,Urine Yellow; Glucose,Urine (UA) Negative (Negative); Hyaline Casts,Urine 59 /lpf (0-2); Ketones,Urine Negative (Negative); Leukocyte Esterase,Urine Trace (Negative); Mucus,Urine Occasional /hpf; Nitrite,Urine Negative (Negative); PH, Urine 6.5 (5.0-8.0); Protein,Urine 3+ (Negative); RBC,Urine 8 /hpf (0-5); Squamous Epithelial Cell,Urine 1 /hpf (0-4); WBC,Urine 31 /hpf (0-5)
[2018-06-06 20:36] LABS: Basophils % (A) 1 %; Eosinophils # (A) 0.7 k/uL (0-0.7); Eosinophils % (A) 8 %; HCT 38.7 % (34.0-46.0); HGB 13.3 gm/dL (11.4-16.0); Lymphocytes % (A) 26 %; MCHC 34.4 g/dL (31.0-37.0); MCV 90.2 fL (80.0-100.0); Mean Platelet Volume 7.7; Monocytes # (A) 0.7 k/uL (0-1.0); Monocytes % (A) 8 %; Neutrophils # (A) 4.2 k/uL (1.3-7.7); Neutrophils % (A) 53 %; Platelet Count 260 k/uL (150-450); RBC 4.29 m/uL (3.80-5.40); RDW 15.1 % (11.5-15.5); WBC 7.8 k/uL (3.8-10.6)
--- NOTE | 2018-06-06 20:37 | XR ---
EXAMINATION TYPE: XR chest 2V DATE OF EXAM: 06/06/2018 COMPARISON: Prior chest x-ray 08/11/2017, 10/30/2016, 08/03/2014 HISTORY: Pain, abnormal chest x-ray TECHNIQUE: Frontal and lateral views of the chest are obtained. FINDINGS: Pacemaker is stable with leads in the right atrium and ventricle. Chronic right-sided rib d eformities, pleural changes are again noted. Increased lung volumes suggest underlying COPD. There is no pneumothorax or pleural effusion. No evident airspace disease. Cardiac mediastinal silhouette, pu lmonary vascularity and robby are not significantly changed. Aorta is tortuous. There are overlying ca rdiac leads. IMPRESSION: No acute cardiopulmonary process.
[2018-06-06 20:47] LABS: ALT 22 U/L (9-52); AST 29 U/L (14-36); Albumin 2.2 g/dL (3.5-5.0); Alkaline Phosphatase 77 U/L (38-126); Anion Gap 2 mmol/L; Blood Urea Nitrogen 14 mg/dL (7-17); Calcium 8.5 mg/dL (8.4-10.2); Carbon Dioxide 31 mmol/L (22-30); Chloride 107 mmol/L (98-107); Glucose 100 mg/dL (74-99); Potassium 4.1 mmol/L (3.5-5.1); Sodium 140 mmol/L (137-145); Total Bilirubin 0.3 mg/dL (0.2-1.3); Total Protein 4.6 g/dL (6.3-8.2)
--- NOTE | 2018-06-06 21:24 | US ---
EXAMINATION TYPE: US venous doppler duplex LE DATE OF EXAM: 06/06/2018 8:53 PM COMPARISON: NONE CLINICAL HISTORY: Pain and swelling. Left leg pain and swelling, some on the right too, no h/o dvt SIDE PERFORMED: bilateral TECHNIQUE: The lower extremity deep venous system is examined utilizing real time linear array sonog nathalia with graded compression, doppler sonography and color-flow sonography. VESSELS IMAGED: External Iliac Vein (EIV) Common Femoral Vein Deep Femoral Vein Greater Saphenous Vein * Femoral Vein Popliteal Vein Small Saphenous Vein * Proximal Calf Veins (* superficial vessels) There is normal flow, compressibility, vascular waveforms. Right Leg: Appears negative for DVT, duplicate femoral vein seen. Left Leg: Appears negative for DVT. Edema channels are present within the legs. IMPRESSION: No evident deep venous thrombosis at or above the knees. Follow-up as indicated.
[2018-06-06 22:03] VITALS: BP 126/79; PULSE 60; RESP 16
== END 2018-06-06 22:02 | disposition home or self-care (01) ==
LOC: EC 19:06
DX: I50.9 Heart failure, unspecified (principal); M25.561 Pain in right knee; M25.562 Pain in left knee; K21.9 Gastro-esophageal reflux disease without esophagitis; I49.5 Sick sinus syndrome; H40.9 Unspecified glaucoma; E03.9 Hypothyroidism, unspecified; F41.9 Anxiety disorder, unspecified; Z87.891 Personal history of nicotine dependence; Z88.2 Allergy status to sulfonamides; Z88.5 Allergy status to narcotic agent; Z79.01 Long term (current) use of anticoagulants; Z79.890 Hormone replacement therapy; Z79.899 Other long term (current) drug therapy; Z95.0 Presence of cardiac pacemaker; Z87.39 Personal history of other diseases of the musculoskeletal system and connective tissue
CPT/HCPCS: 36415; 71046; 80053; 81001; 83880; 84484; 85025; 93005; 93970; 99284

== ENCOUNTER 2018-08-04 10:27 | Inpatient (IN) | payer MEDICARE, OTHER ==
[2018-08-04] MEDS ORDERED: IPRATROPIUM-ALBUTEROL 3 ML NEB INHALATION STA (10:58)
[2018-08-04] MEDS ORDERED: ALBUTEROL NEBULIZED 2.5 MG/3 ML INHALATION STA (10:58)
[2018-08-04] MEDS ORDERED: AZITHROMYCIN 500 MG in SODIUM CHLORIDE 0.9% 250 ML IVPB STA ×2 (10:58→13:01)
[2018-08-04] MEDS ORDERED: methylPREDNISolone SOD SUCCI 125 MG/2 ML VIAL IV STA (10:58)
[2018-08-04] MEDS ORDERED: SODIUM CHLORIDE 0.9% 1,000 ML IV STA ×2 (10:58)
[2018-08-04] MEDS ORDERED: ACETAMINOPHEN TAB 500 MG TAB PO STA (11:13)
[2018-08-04 11:17] LABS: Basophils % (A) 0 %; Eosinophils # (A) 0.2 k/uL (0-0.7); Eosinophils % (A) 2 %; HCT 40.9 % (34.0-46.0); HGB 13.3 gm/dL (11.4-16.0); Lymphocytes # (A) 1.2 k/uL (1.0-4.8); Lymphocytes % (A) 11 %; MCH 29.7 pg (25.0-35.0); MCHC 32.5 g/dL (31.0-37.0); MCV 91.3 fL (80.0-100.0); Mean Platelet Volume 7.4; Monocytes # (A) 0.5 k/uL (0-1.0); Monocytes % (A) 5 %; Neutrophils # (A) 9.4 k/uL (1.3-7.7); Neutrophils % (A) 81 %; Platelet Count 299 k/uL (150-450); RBC 4.48 m/uL (3.80-5.40); RDW 14.8 % (11.5-15.5); WBC 11.6 k/uL (3.8-10.6)
--- NOTE | 2018-08-04 11:17 | ED ---
SOB HPI - General Chief Complaint: Shortness of Breath Stated Complaint: Chest pain,SOB Time Seen by Provider: 08/04/18 10:39 Source: patient, RN notes reviewed, old records reviewed Mode of arrival: wheelchair Limitations: no limitations - History of Present Illness Initial Comments: Patient is a 73-year-old female with a history of pacemaker, she presents emergency department today for evaluation with complaints of cough, increased congestion difficulty breathing for the past 2-3 days. She reports her cough is yellow-green sputum tinged. Patient states that she is use her inhaler at home but wasn't helping. Patient states that she is it near multiple smoke, but quit smoking several years ago. Denies known history of COPD. Patient states that she's had some chills. No recent Motrin or Tylenol are given. - Related Data Home Medications Medication Instructions Recorded Confirmed Metoprolol Tartrate [Lopressor] 25 mg PO BID 09/09/13 08/04/18 Oxybutynin Chloride [Ditropan] 5 mg PO BID 09/09/13 08/04/18 Gabapentin [Neurontin] 100 mg PO TID 05/17/14 08/04/18 HYDROcodone/APAP 7.5-325MG [[place] 1 tab PO BID PRN 10/23/16 08/04/18 7.5-325] Levothyroxine Sodium [Synthroid] 125 mcg PO DAILY 10/27/16 08/04/18 traZODone HCL 100 mg PO HS 10/27/16 08/04/18 Folic Acid 1 mg PO DAILY 03/29/17 08/04/18 Ranitidine HCl [Zantac] 150 mg PO BID 03/29/17 08/04/18 rOPINIRole HCL [Requip] 0.5 mg PO HS PRN 08/11/17 08/04/18 Apixaban [Eliquis] 5 mg PO BID 06/06/18 08/04/18 Cyclobenzaprine [Flexeril] 5 mg PO DAILY 06/06/18 08/04/18 Latanoprost [Xalatan 0.005%] 1 drop BOTH EYES HS 06/06/18 08/04/18 Multivitamins, Thera [Multivitamin 1 tab PO DAILY 08/04/18 08/04/18 (formulary)] Allergies Allergy/AdvReac Type Severity Reaction Status Date / Time codeine Allergy Rash/Hives Verified 08/04/18 10:47 sulfamethoxazole AdvReac Nausea & Verified 08/04/18 10:47 [From Bactrim] Vomiting trimethoprim [From Bactrim] AdvReac Nausea & Verified 08/04/18 10:47 Vomiting Review of Systems ROS Statement: Those systems with pertinent positive or pertinent negative responses have been documented in the HPI. ROS Other: All systems not noted in ROS Statement are negative. Past Medical History Past Medical History: Asthma, Eye Disorder, GERD/Reflux, Osteoarthritis (OA), Pneumonia, Rheumatoid Arthritis (RA), Thyroid Disorder Additional Past Medical History / Comment(s): SSS with pacer, arthritis bilateral hands, shoulders, neck and feet, hypothyroid, bilateral glaucoma, bilateral carpal tunnel syndrome. History of Any Multi-Drug Resistant Organisms: None Reported Past Surgical History: Appendectomy, Orthopedic Surgery, Pacemaker Additional Past Surgical History / Comment(s): Pacemaker, generator changes with last time being 10/30/16, kidney stone removal, bilateral eye surgery for glaucoma, colonoscopy, R foot hammer toe. Past Anesthesia/Blood Transfusion Reactions: No Reported Reaction Type of Cardiac Device: Permanent Pacemaker Device Placement Date:: 02/15/01 Past Psychological History: Anxiety Smoking Status: Former smoker Past Alcohol Use History: None Reported Past Drug Use History: None Reported - Past Family History Father Family Medical History: Asthma, Cancer Additional Family Medical History / Comment(s): Father from prostate cancer at the age of 66yrs. Mother Family Medical History: Cancer Additional Family Medical History / Comment(s): Mother had lung cancer. She was a nonsmoker but exposed to 2nd hand smoke. She at the age of 51 yrs form the lung cancer and other "complications." General Exam - General Exam Comments Initial Comments: 73-year-old female, alert and oriented 3. No distress. Limitations: no limitations General appearance: alert, in no apparent distress Head exam: Present: atraumatic, normocephalic, normal inspection Eye exam: Present: normal appearance, PERRL, EOMI. Absent: scleral icterus, conjunctival injection, periorbital swelling ENT exam: Present: normal exam, mucous membranes moist Neck exam: Present: normal inspection. Absent: tenderness, meningismus, lymphadenopathy Respiratory exam: Present: rhonchi, decreased breath sounds, other (Decreased lung signs over the left lower quadrant of lung field.). Absent: normal lung sounds bilaterally, respiratory distress, wheezes, rales, stridor Cardiovascular Exam: Present: regular rate, normal rhythm, normal heart sounds. Absent: systolic murmur, diastolic murmur, rubs, gallop, clicks Extremities exam: Present: normal inspection, full ROM, normal capillary refill, pedal edema, other (1+ bilateral pedal edema). Absent: tenderness, joint swelling, calf tenderness Back exam: Present: normal inspection Neurological exam: Present: alert, oriented X3, CN II-XII intact Psychiatric exam: Present: normal affect, normal mood Skin exam: Present: warm, dry, intact, normal color. Absent: rash Course Vital Signs 08/04/18 08/04/18 08/04/18 10:32 11:26 11:31 Temperature 99.1 F Pulse Rate 109 H 95 93 Respiratory 18 18 Rate Blood Pressure 123/84 120/88 O2 Sat by Pulse 91 L 100 Oximetry 08/04/18 08/04/18 11:45 12:05 Temperature Pulse Rate 97 105 H Respiratory Rate Blood Pressure O2 Sat by Pulse Oximetry Medical Decision Making - Medical Decision Making This patient's a 73-year-old female who presents emergency department today for evaluation complaints of wheezing, worsening cough difficulty breathing. She denies any specific chest pain. She has a history of Pacemaker. Patient does have decreased lung sounds reveal a pleural effusion, wheezing noted. Patient has had a low-grade fever. Chest x-ray shows evidence of pneumonia. Due to significant wheezing on initial exam Patient is given 45 minute breathing treatment. She has had some improvement. Patient was started on Rocephin and azithromycin. Patient's troponin is elevated 0.168. Patient denies any significant chest pain EKG had no significant change. Patient will be given aspirin. Discussed with Dr. Hill and will hold heparin and repeat patient's troponin. She denies any significant chest pain. Asians troponin elevations likely due to infection. Patient case discussed with Dr. Kern. - Lab Data Result diagrams: 08/04/18 11:00 08/04/18 11:00 Lab Results 08/04/18 08/04/18 08/04/18 Range/Units 11:00 11:00 11:00 WBC 11.6 H (3.8-10.6) k/uL RBC 4.48 (3.80-5.40) m/uL Hgb 13.3 (11.4-16.0) gm/dL Hct 40.9 (34.0-46.0) % MCV 91.3 (80.0-100.0) fL MCH 29.7 (25.0-35.0) pg MCHC 32.5 (31.0-37.0) g/dL RDW 14.8 (11.5-15.5) % Plt Count 299 (150-450) k/uL Neutrophils % 81 % Lymphocytes % 11 % Monocytes % 5 % Eosinophils % 2 % Basophils % 0 % Neutrophils # 9.4 H (1.3-7.7) k/uL Lymphocytes # 1.2 (1.0-4.8) k/uL Monocytes # 0.5 (0-1.0) k/uL Eosinophils # 0.2 (0-0.7) k/uL Basophils # 0.0 (0-0.2) k/uL PT 10.5 (9.0-12.0) sec INR 1.0 (<1.2) APTT 26.9 (22.0-30.0) sec Sodium 136 L (137-145) mmol/L Potassium 2.8 L (3.5-5.1) mmol/L Chloride 101 (98-107) mmol/L Carbon Dioxide 28 (22-30) mmol/L Anion Gap 7 mmol/L BUN 15 (7-17) mg/dL Creatinine 1.08 H (0.52-1.04) mg/dL Est GFR (CKD-EPI)AfAm 58 (>60 ml/min/1.73 sqM) Est GFR (CKD-EPI)NonAf 50 (>60 ml/min/1.73 sqM) Glucose 127 H (74-99) mg/dL Calcium 7.9 L (8.4-10.2) mg/dL Magnesium 1.9 (1.6-2.3) mg/dL Total Bilirubin 0.2 (0.2-1.3) mg/dL AST 39 H (14-36) U/L ALT 25 (9-52) U/L Alkaline Phosphatase 84 (38-126) U/L Troponin I (0.000-0.034) ng/mL Total Protein 4.2 L (6.3-8.2) g/dL Albumin 1.9 L (3.5-5.0) g/dL 08/04/18 Range/Units 11:00 WBC (3.8-10.6) k/uL RBC (3.80-5.40) m/uL Hgb (11.4-16.0) gm/dL Hct (34.0-46.0) % MCV (80.0-100.0) fL MCH (25.0-35.0) pg MCHC (31.0-37.0) g/dL RDW (11.5-15.5) % Plt Count (150-450) k/uL Neutrophils % % Lymphocytes % % Monocytes % % Eosinophils % % Basophils % % Neutrophils # (1.3-7.7) k/uL Lymphocytes # (1.0-4.8) k/uL Monocytes # (0-1.0) k/uL Eosinophils # (0-0.7) k/uL Basophils # (0-0.2) k/uL PT (9.0-12.0) sec INR (<1.2) APTT (22.0-30.0) sec Sodium (137-145) mmol/L Potassium (3.5-5.1) mmol/L Chloride (98-107) mmol/L Carbon Dioxide (22-30) mmol/L Anion Gap mmol/L BUN (7-17) mg/dL Creatinine (0.52-1.04) mg/dL Est GFR (CKD-EPI)AfAm (>60 ml/min/1.73 sqM) Est GFR (CKD-EPI)NonAf (>60 ml/min/1.73 sqM) Glucose (74-99) mg/dL Calcium (8.4-10.2) mg/dL Magnesium (1.6-2.3) mg/dL Total Bilirubin (0.2-1.3) mg/dL AST (14-36) U/L ALT (9-52) U/L Alkaline Phosphatase (38-126) U/L Troponin I 0.148 H* (0.000-0.034) ng/mL Total Protein (6.3-8.2) g/dL Albumin (3.5-5.0) g/dL 08/04/18 11:21 EKG performed at 1102 shows normal sinus rhythm low voltage QRS. Cannot rule anterior infarct. Ventricular rate of 100 bpm. Pulse 128 ms. QRS duration 80 ms. QT QTC 340/438 ms. - Radiology Data Radiology results: report reviewed X-ray shows a new left basilar pneumonia. Given the location aspiration pneumonia could be considered. Critical Care Time Critical Care Time: Yes Total Critical Care Time: 30 Critical Care Time: Within 30 minutes of critical care time was used discussing Patient, assessing patient's clinical status with wheezing and concerns for mild rest for distress, interpreting lab values and initiated Patient on appropriate antibiotics. Disposition Clinical Impression: Pneumonia, Hypokalemia, Elevated troponin, CHF (congestive heart failure) Disposition: ADMITTED IP TO THIS HOSP Condition: Stable Is patient prescribed a controlled substance at d/c from ED?: No Referrals: Pierce Marin DO [Primary Care Provider] - 1-2 days Time of Disposition: 13:00
[2018-08-04 11:27] LABS: Partial Thromboplastin Time 26.9 sec (22.0-30.0); Prothrombin Time 10.5 sec (9.0-12.0)
[2018-08-04 11:32] LABS: Albumin 1.9 g/dL (3.5-5.0); Calcium 7.9 mg/dL (8.4-10.2); Magnesium 1.9 mg/dL (1.6-2.3); Potassium 2.8 mmol/L (3.5-5.1); Total Bilirubin 0.2 mg/dL (0.2-1.3); Total Protein 4.2 g/dL (6.3-8.2)
--- NOTE | 2018-08-04 12:22 | XR ---
EXAMINATION TYPE: XR chest 2V DATE OF EXAM: 08/04/2018 COMPARISON: 06/06/2018 HISTORY: Difficulty breathing. History of asthma. TECHNIQUE: Frontal and lateral views of the chest are obtained. FINDINGS: There is new left basilar airspace disease. Remainder the lungs are clear. No pneumothorax or sizable pleural effusion. Multi lead left-sided cardiac device is seen with prominence of the car tanya mediastinal silhouette. No acute osseous pathology. Minimal generalized osseous demineralization. IMPRESSION: New left basilar pneumonia. Given the dependent location aspiration pneumonia could be c onsidered.
[2018-08-04] MEDS: POTASSIUM CHLORIDE 10 MEQ in WATER FOR INJECTION 1 100ML.BAG IVPB SCH ×4 (12:44→16:51)
[2018-08-04] MEDS ORDERED: ASPIRIN 325 MG TAB PO STA (12:58)
[2018-08-04] MEDS ORDERED: PNEUMONIA PROTOCOL UTILIZED 1 EACH MISC PO PRN (13:01)
[2018-08-04] MEDS ORDERED: IPRATROPIUM-ALBUTEROL 3 ML NEB INHALATION PRN (13:01)
[2018-08-04 13:39] LABS: Appearance,Urine Clear (Clear); Bacteria,Urine Rare /hpf; Bilirubin,Urine Negative (Negative); Blood,Urine Small (Negative); Color,Urine Colorless; Glucose,Urine (UA) Negative (Negative); Ketones,Urine Negative (Negative); Leukocyte Esterase,Urine Negative (Negative); Mucus,Urine Rare /hpf; Nitrite,Urine Negative (Negative); Protein,Urine 2+ (Negative); RBC,Urine 1 /hpf (0-5); Specific Gravity,Urine 1.004 (1.001-1.035); Squamous Epithelial Cell,Urine 1 /hpf (0-4); Urobilinogen,Urine <2.0 mg/dL (<2.0); WBC,Urine 1 /hpf (0-5)
[2018-08-04] MEDS ORDERED: CYCLOBENZAPRINE 5 MG TAB PO PRN (13:39)
--- NOTE | 2018-08-04 13:48 | P.HPIM ---
History of Present Illness Patient was on-year-old the female came in with complains of shortness of breath cough with green sputum production and fever couple days ago and patient was dealing with sinusitis for about a week patient was taking antibiotics azit hromycin and was given prednisone. Patient is found to have a significant infiltrate in the left lower lobe consistent with pneumonia. Patient was started on Rocephin and azithromycin appropriately. Patient used to smoke in the past. Smoking many years ago. Denies any known history of COPD. Patient personally doesn't have any fever does have leukocytosis. Patient still appears to have sinusitis. The other significant abnormalities in her lab testing is elevated BNP of 6600 although patient only has minimally elevated JVD on less than 60 angle, chest x-ray did not show any infiltrate patient doesn't have any pedal edema. Patient had normal ejection fraction the past patient does have history of sick sinus syndrome for which patient is on metoprolol and does have a pacemaker and is on Eliquis. Patient does have elevated minimally elevated troponin. EKG did not show any significant extremity acute ST-T wave changes. Patient does have some musculoskeletal chest pain after coughing but no typical cardiac pain. 2 more doses of troponins will be repeated and cardiology was consulted from ER. Patient was started on Lasix and do not believe is necessary discontinued it patient serum sodium is borderline potassium is low and serum creatinine is bit on the higher side of 1.08 and patient is tachycardic. Sinus rhythm Review of Systems REVIEW OF SYSTEMS: CONSTITUTIONAL: No fever, no malaise, no fatigue. HEENT: No recent visual problems or hearing problems. Denied any sore throat. CARDIOVASCULAR: No orthopnea, PND, no palpitations, no syncope. PULMONARY: As mentioned in HPI GASTROINTESTINAL: No diarrhea, no nausea, no vomiting, no abdominal pain. NEUROLOGICAL: No headaches, no weakness, no numbness. HEMATOLOGICAL: Denies any bleeding or petechiae. GENITOURINARY: Denies any burning micturition, frequency, or urgency. MUSCULOSKELETAL/RHEUMATOLOGICAL: Denies any joint pain, swelling, or any muscle pain. ENDOCRINE: Denies any polyuria or polydipsia. The rest of the 14-point review of systems is negative. Past Medical History Past Medical History: Asthma, Eye Disorder, GERD/Reflux, Pneumonia, Rheumatoid Arthritis (RA), Thyroid Disorder Additional Past Medical History / Comment(s): SSS with pacer, rheumatoid arthritis bilateral hands, shoulders, neck and feet, neuropathy bilateral hands, RLS, hypothyroid, bilateral glaucoma, bilateral carpal tunnel syndrome, occasional urine leakage. History of Any Multi-Drug Resistant Organisms: None Reported Past Surgical History: Appendectomy, Orthopedic Surgery, Pacemaker Additional Past Surgical History / Comment(s): Pacemaker inserted in 2000, generator changes with last time being 10/30/16, kidney stone removal, bilateral eye surgery for glaucoma, colonoscopy, R foot hammer toe. Past Anesthesia/Blood Transfusion Reactions: No Reported Reaction Type of Cardiac Device: Permanent Pacemaker Device Placement Date:: 02/15/01 Smoking Status: Former smoker - Past Family History Father Family Medical History: Asthma, Cancer Additional Family Medical History / Comment(s): Father from prostate cancer at the age of 66yrs. Mother Family Medical History: Cancer Additional Family Medical History / Comment(s): Mother had lung cancer. She was a nonsmoker but exposed to 2nd hand smoke. She at the age of 53 yrs form the lung cancer and other "complications." Medications and Allergies Home Medications Medication Instructions Recorded Confirmed Type Metoprolol Tartrate [Lopressor] 25 mg PO BID 09/09/13 08/04/18 History Oxybutynin Chloride [Ditropan] 5 mg PO BID 09/09/13 08/04/18 History Gabapentin [Neurontin] 100 mg PO TID 05/17/14 08/04/18 History HYDROcodone/APAP 7.5-325MG [Ladd 1 tab PO BID PRN 10/23/16 08/04/18 History 7.5-325] Levothyroxine Sodium [Synthroid] 125 mcg PO DAILY 10/27/16 08/04/18 History traZODone HCL 100 mg PO HS 10/27/16 08/04/18 History Folic Acid 1 mg PO DAILY 03/29/17 08/04/18 History Ranitidine HCl [Zantac] 150 mg PO BID 03/29/17 08/04/18 History rOPINIRole HCL [Requip] 0.5 mg PO HS PRN 08/11/17 08/04/18 History Apixaban [Eliquis] 5 mg PO BID 06/06/18 08/04/18 History Cyclobenzaprine [Flexeril] 5 mg PO DAILY 06/06/18 08/04/18 History Latanoprost [Xalatan 0.005%] 1 drop BOTH EYES HS 06/06/18 08/04/18 History Multivitamins, Thera [Multivitamin 1 tab PO DAILY 08/04/18 08/04/18 History (formulary)] Allergies Allergy/AdvReac Type Severity Reaction Status Date / Time codeine Allergy Rash/Hives Verified 08/04/18 10:47 sulfamethoxazole AdvReac Nausea & Verified 08/04/18 10:47 [From Bactrim] Vomiting trimethoprim [From Bactrim] AdvReac Nausea & Verified 08/04/18 10:47 Vomiting Physical Exam Vitals: Vital Signs Temp Pulse Resp BP Pulse Ox 08/04/18 12:54 98.7 F 107 H 18 112/78 96 08/04/18 12:05 105 H 08/04/18 11:45 97 08/04/18 11:31 93 18 120/88 100 08/04/18 11:26 95 08/04/18 10:32 99.1 F 109 H 18 123/84 91 L Intake and Output 08/03/18 08/04/18 08/04/18 22:59 06:59 14:59 Other: Weight 63.049 kg PHYSICAL EXAMINATION: GENERAL: The patient is alert and oriented x3, not in any acute distress. Well developed, well nourished. HEENT: Pupils are round and equally reacting to light. EOMI. No scleral icterus. No conjunctival pallor. Normocephalic, atraumatic. No pharyngeal erythema. No thyromegaly. CARDIOVASCULAR: S1 and S2 present. No murmurs, rubs, or gallops. PULMONARY: Bilateral significant rhonchus breath sounds ABDOMEN: Soft, nontender, nondistended, normoactive bowel sounds. No palpable organomegaly. MUSCULOSKELETAL: No joint swelling or deformity. EXTREMITIES: No cyanosis, clubbing, or pedal edema. NEUROLOGICAL: Gross neurological examination did not reveal any focal deficits. SKIN: No rashes. Results CBC & Chem 7: 08/04/18 11:00 08/04/18 11:00 Labs: Abnormal Lab Results - Last 24 Hours (Table) 08/04/18 08/04/18 08/04/18 Range/Units 11:00 11:00 11:00 WBC 11.6 H (3.8-10.6) k/uL Neutrophils # 9.4 H (1.3-7.7) k/uL Sodium 136 L (137-145) mmol/L Potassium 2.8 L (3.5-5.1) mmol/L Creatinine 1.08 H (0.52-1.04) mg/dL Glucose 127 H (74-99) mg/dL Plasma Lactic Acid Seven (0.7-2.0) mmol/L Calcium 7.9 L (8.4-10.2) mg/dL AST 39 H (14-36) U/L Troponin I 0.148 H* (0.000-0.034) ng/mL Total Protein 4.2 L (6.3-8.2) g/dL Albumin 1.9 L (3.5-5.0) g/dL Urine Protein (Negative) Urine Blood (Negative) Urine Bacteria (None) /hpf Urine Mucus (None) /hpf 08/04/18 08/04/18 Range/Units 13:00 13:01 WBC (3.8-10.6) k/uL Neutrophils # (1.3-7.7) k/uL Sodium (137-145) mmol/L Potassium (3.5-5.1) mmol/L Creatinine (0.52-1.04) mg/dL Glucose (74-99) mg/dL Plasma Lactic Acid Seven 3.7 H* (0.7-2.0) mmol/L Calcium (8.4-10.2) mg/dL AST (14-36) U/L Troponin I (0.000-0.034) ng/mL Total Protein (6.3-8.2) g/dL Albumin (3.5-5.0) g/dL Urine Protein 2+ H (Negative) Urine Blood Small H (Negative) Urine Bacteria Rare H (None) /hpf Urine Mucus Rare H (None) /hpf Assessment and Plan Plan: Shortness of breath, possible sepsis from community-acquired pneumonia do not have believe patient has aspiration pneumonia, patient was started on Rocephin and azithromycin which is appropriate. We'll obtain sputum cultures blood c ultures. -Hypokalemia potassium was supplemented -Minimally elevated troponins secondary to sepsis Atrial fibrillation mild elevated heart rate but the patient is sinus rhythm, patient will be resumed on beta manjit and the Eliquis. -Acute renal failure probably secondary to sepsis intravascular volume depletion as there was a concern about CHF and not giving her any IV fluids unless she looks more septic and if her heart rate increases her blood pressure drops. Her Lasix will be discontinued as well -Gastroesophageal reflux disease -Possibility of COPD without any significant exacerbation at this time -Hypothyroidism -From denied arthritis -Anxiety and depression Patient will need formal neurologic prophylaxis.
[2018-08-04] MEDS ORDERED: FUROSEMIDE 10 MG/ML 4 ML VIAL IV SCH (14:00)
[2018-08-04] MEDS: ALBUTEROL NEBULIZED 2.5 MG/3 ML INHALATION SCH ×2 (15:53→19:39)
[2018-08-04] MEDS: FAMOTIDINE 20 MG TAB PO SCH (18:43)
[2018-08-04] MEDS: GABAPENTIN 100 MG CAP PO SCH ×2 (18:43→21:40)
[2018-08-04] MEDS: OXYBUTYNIN CHLORIDE 5 MG TAB PO SCH (20:27)
[2018-08-04] MEDS: METOPROLOL TARTRATE 25 MG TAB PO SCH (20:27)
[2018-08-04] MEDS: APIXABAN 5 MG TAB PO SCH (20:28)
[2018-08-04] MEDS: LATANOPROST 0.005% OPHTH DROPS 2.5 ML BTL BOTH EYES SCH (20:29)
[2018-08-04] MEDS: HYDROcodone/APAP 7.5-325MG 1 EACH TAB PO PRN (20:30)
[2018-08-04] MEDS ORDERED: SODIUM CHLORIDE 0.9% 500 ML 500 ML IV ONE (22:18)
[2018-08-04] MEDS ORDERED: Potassium Replacement Protocol 1 EACH MISC MISCELLANE PRN (22:18)
[2018-08-04] MEDS: POTASSIUM CHLORIDE ER 20 MEQ TAB.ER PO SCH ×2 (22:24→23:33)
[2018-08-04] MEDS: SODIUM CHLORIDE 0.9% 1,000 ML IV SCH (23:33)
[2018-08-05] MEDS: LEVOTHYROXINE 125 MCG TAB PO SCH (06:00)
[2018-08-05 06:40] LABS: HCT 33.6 % (34.0-46.0); MCH 29.8 pg (25.0-35.0); MCHC 32.6 g/dL (31.0-37.0); MCV 91.5 fL (80.0-100.0); Mean Platelet Volume 7.5; Platelet Count 320 k/uL (150-450); RBC 3.68 m/uL (3.80-5.40); RDW 14.5 % (11.5-15.5); WBC 18.8 k/uL (3.8-10.6)
[2018-08-05 07:08] LABS: Calcium 7.3 mg/dL (8.4-10.2); Potassium 4.2 mmol/L (3.5-5.1)
--- NOTE | 2018-08-05 07:27 | XR ---
EXAMINATION TYPE: XR chest 2V DATE OF EXAM: 08/05/2018 COMPARISON: 08/04/2018 HISTORY: Pneumonia follow-up exam. TECHNIQUE: Frontal and lateral views of the chest are obtained. FINDINGS: Similar-appearing left basilar airspace disease is seen. Remainder the lungs are clear. Ca rdiomediastinal silhouette is again upper limits of normal with multilead left-sided cardiac device. Suspected old fracture deformity of the right lateral rib. No sizable pneumothorax or pleural effusio n. Minimal degenerative changes of spine and osseous demineralization. Pulmonary hyperinflation sugge sts underlying COPD. IMPRESSION: Unchanged left basilar airspace disease again suspected pneumonia.
[2018-08-05] MEDS: ALBUTEROL NEBULIZED 2.5 MG/3 ML INHALATION SCH ×4 (09:02→20:54)
[2018-08-05] MEDS: FAMOTIDINE 20 MG TAB PO SCH (10:23)
[2018-08-05] MEDS: OXYBUTYNIN CHLORIDE 5 MG TAB PO SCH ×2 (10:23→19:48)
[2018-08-05] MEDS: METOPROLOL TARTRATE 25 MG TAB PO SCH ×2 (10:23→19:48)
[2018-08-05] MEDS: GABAPENTIN 100 MG CAP PO SCH ×3 (10:23→19:48)
[2018-08-05] MEDS: APIXABAN 5 MG TAB PO SCH ×2 (10:23→19:48)
--- NOTE | 2018-08-05 10:44 | P.PN ---
Subjective 73-year-old female admitted for sepsis conveyed to her left lower lobe pneumonia patient does have elevated troponin because of his Cardiology was consulted echocardiogram is being obtained patient does have elevated BNP but was no clinical evidence of scar heart failure. Patient will be continued on IV antibiotics. Feeling better today off oxygen. Constitutional: Denied any fatigue denied any fever. Cardio vascular: denied any chest pain, palpitations Gastrointestinal denied any nausea vomiting Pulmonary: Denied any shortness of breath cough Neurologic denied any new focal deficits All inpatient medications were reviewed and appropriate changes in these medications as dictated in the interval history and assessment and plan. Objective - Vital Signs Vital signs: Vital Signs Temp 98.6 F 08/05/18 04:00 Pulse 97 08/05/18 09:12 Resp 18 08/05/18 04:00 BP 125/65 08/05/18 04:00 Pulse Ox 92 L 08/05/18 04:00 Intake & Output 08/04/18 08/05/18 08/05/18 18:59 06:59 18:59 Intake Total 1240 2000 Balance 1240 1999 Weight 65.2 kg 66.9 kg Intake: Amount of Fluid Infused ( 1000 ml) Intake, IV Titration 1500 Amount Sodium Chloride 0.9% 1, 1000 000 ml @ 100 mls/hr IV . Q10H GAYLE Rx#:[id number] Sodium Chloride 0.9% 500 500 ml 500 ml @ 999 mls/hr IV .Q31M ONE Rx#:[id number] Oral 240 500 Other: Voiding Method Toilet Toilet # Voids 1 - Exam PHYSICAL EXAMINATION: GENERAL: The patient is alert and oriented x3, not in any acute distress. Well developed, well nourished. HEENT: Pupils are round and equally reacting to light. EOMI. No scleral icterus. No conjunctival pallor. Normocephalic, atraumatic. No pharyngeal erythema. No thyromegaly. CARDIOVASCULAR: S1 and S2 present. No murmurs, rubs, or gallops. PULMONARY: Chest is clear to auscultation, no wheezing or crackles. ABDOMEN: Soft, nontender, nondistended, normoactive bowel sounds. No palpable organomegaly. MUSCULOSKELETAL: No joint swelling or deformity. EXTREMITIES: No cyanosis, clubbing, or pedal edema. NEUROLOGICAL: Gross neurological examination did not reveal any focal deficits. SKIN: No rashes. - Labs CBC & Chem 7: 08/05/18 06:20 08/05/18 06:20 Labs: Abnormal Lab Results - Last 24 Hours (Table) 08/04/18 08/04/18 08/04/18 Range/Units 11:00 11:00 11:00 WBC 11.6 H (3.8-10.6) k/uL RBC (3.80-5.40) m/uL Hgb (11.4-16.0) gm/dL Hct (34.0-46.0) % Neutrophils # 9.4 H (1.3-7.7) k/uL Sodium 136 L (137-145) mmol/L Potassium 2.8 L (3.5-5.1) mmol/L Chloride (98-107) mmol/L BUN (7-17) mg/dL Creatinine 1.08 H (0.52-1.04) mg/dL Glucose 127 H (74-99) mg/dL Plasma Lactic Acid [place] (0.7-2.0) mmol/L Calcium 7.9 L (8.4-10.2) mg/dL AST 39 H (14-36) U/L Troponin I 0.148 H* (0.000-0.034) ng/mL Total Protein 4.2 L (6.3-8.2) g/dL Albumin 1.9 L (3.5-5.0) g/dL Urine Protein (Negative) Urine Blood (Negative) Urine Bacteria (None) /hpf Urine Mucus (None) /hpf 08/04/18 08/04/18 08/04/18 Range/Units 13:00 13:01 16:08 WBC (3.8-10.6) k/uL RBC (3.80-5.40) m/uL Hgb (11.4-16.0) gm/dL Hct (34.0-46.0) % Neutrophils # (1.3-7.7) k/uL Sodium (137-145) mmol/L Potassium (3.5-5.1) mmol/L Chloride (98-107) mmol/L BUN (7-17) mg/dL Creatinine (0.52-1.04) mg/dL Glucose (74-99) mg/dL Plasma Lactic Acid Seven 3.7 H* (0.7-2.0) mmol/L Calcium (8.4-10.2) mg/dL AST (14-36) U/L Troponin I 0.139 H* (0.000-0.034) ng/mL Total Protein (6.3-8.2) g/dL Albumin (3.5-5.0) g/dL Urine Protein 2+ H (Negative) Urine Blood Small H (Negative) Urine Bacteria Rare H (None) /hpf Urine Mucus Rare H (None) /hpf 08/04/18 08/04/18 08/04/18 Range/Units 16:57 20:59 20:59 WBC (3.8-10.6) k/uL RBC (3.80-5.40) m/uL Hgb (11.4-16.0) gm/dL Hct (34.0-46.0) % Neutrophils # (1.3-7.7) k/uL Sodium (137-145) mmol/L Potassium 3.4 L (3.5-5.1) mmol/L Chloride (98-107) mmol/L BUN (7-17) mg/dL Creatinine (0.52-1.04) mg/dL Glucose (74-99) mg/dL Plasma Lactic Acid Seven 2.7 H* 4.4 H* (0.7-2.0) mmol/L Calcium (8.4-10.2) mg/dL AST (14-36) U/L Troponin I (0.000-0.034) ng/mL Total Protein (6.3-8.2) g/dL Albumin (3.5-5.0) g/dL Urine Protein (Negative) Urine Blood (Negative) Urine Bacteria (None) /hpf Urine Mucus (None) /hpf 08/04/18 08/05/18 08/05/18 Range/Units 23:59 01:25 06:20 WBC 18.8 H (3.8-10.6) k/uL RBC 3.68 L (3.80-5.40) m/uL Hgb 11.0 L (11.4-16.0) gm/dL Hct 33.6 L (34.0-46.0) % Neutrophils # (1.3-7.7) k/uL Sodium (137-145) mmol/L Potassium (3.5-5.1) mmol/L Chloride (98-107) mmol/L BUN (7-17) mg/dL Creatinine (0.52-1.04) mg/dL Glucose (74-99) mg/dL Plasma Lactic Acid Seven 2.7 H* (0.7-2.0) mmol/L Calcium (8.4-10.2) mg/dL AST (14-36) U/L Troponin I 0.129 H* (0.000-0.034) ng/mL Total Protein (6.3-8.2) g/dL Albumin (3.5-5.0) g/dL Urine Protein (Negative) Urine Blood (Negative) Urine Bacteria (None) /hpf Urine Mucus (None) /hpf 08/05/18 Range/Units 06:20 WBC (3.8-10.6) k/uL RBC (3.80-5.40) m/uL Hgb (11.4-16.0) gm/dL Hct (34.0-46.0) % Neutrophils # (1.3-7.7) k/uL Sodium (137-145) mmol/L Potassium (3.5-5.1) mmol/L Chloride 110 H (98-107) mmol/L BUN 18 H (7-17) mg/dL Creatinine 1.09 H (0.52-1.04) mg/dL Glucose 123 H (74-99) mg/dL Plasma Lactic Acid Seven (0.7-2.0) mmol/L Calcium 7.3 L (8.4-10.2) mg/dL AST (14-36) U/L Troponin I (0.000-0.034) ng/mL Total Protein (6.3-8.2) g/dL Albumin (3.5-5.0) g/dL Urine Protein (Negative) Urine Blood (Negative) Urine Bacteria (None) /hpf Urine Mucus (None) /hpf Assessment and Plan Plan: Shortness of breath, possible sepsis from community-acquired pneumonia do not have believe patient has aspiration pneumonia, patient was started on Rocephin and azithromycin which is appropriate. We'll obtain sputum cultures blood cultures. -Hypokalemia potassium was supplemented -Minimally elevated troponins secondary to sepsis, echo cardiac exam is being obtained cardiology will evaluate the patient. Atrial fibrillation mild elevated heart rate but the patient is sinus rhythm, patient will be resumed on beta manjit and the Eliquis. -Acute renal failure probably secondary to sepsis intravascular volume depletion as there was a concern about CHF and not giving her any IV fluids unless she looks more septic and if her heart rate increases her blood pressure drops. Her Lasix will be discontinued as well -Gastroesophageal reflux disease -Possibility of COPD without any significant exacerbation at this time -Hypothyroidism -From denied arthritis -Anxiety and depression Patient will need formal neurologic prophylaxis.
--- NOTE | 2018-08-05 10:59 | ECHOF ---
Referral Reason:chf MEASUREMENTS -------- HEIGHT: 157.5 cm WEIGHT: 66.7 kg BP: IVSd: 1.4 cm (0.6 - 1.1) LVIDd: 3.0 cm (3.9 - 5.3) LVPWd: 1.5 cm (0.6 - 1.1) IVSs: 1.6 cm LVIDs: 2.0 cm LVPWs: 1.9 cm LAESV Index (A-L): 36.66 ml/m Ao Diam: 3.1 cm (2.0 - 3.7) AV Cusp: 1.6 cm (1.5 - 2.6) LA Diam: 3.1 cm (2.7 - 3.8) MV EXCURSION: 13.189 mm (> 18.000) MV EF SLOPE: 111 mm/s (70 - 150) EPSS: 0.7 cm MV E Jeramie: 0.79 m/s MV DecT: 203 ms MV A Jeramie: 0.87 m/s MV E/A Ratio: 0.91 AR PHT: 883 ms RAP: 15.00 mmHg RVSP: 43.35 mmHg FINDINGS -------- Pacerwire seen in RV and RA. This was a technically good study. The left ventricular size is normal. There is moderate concentric left ventricular hypertrophy. O verall left ventricular systolic function is low-normal with, an EF between 50 - 55 %. The right ventricle is normal in size. LA is moderately dilated 34-39 ml/m2 The right atrial size is normal. Interatrial and interventricular septum intact. The aortic valve is trileaflet and appears structurally normal. There is mild aortic regurgitation. Mild mitral regurgitation is present. Mild tricuspid regurgitation present. There is mild pulmonary hypertension. The right ventricular systolic pressure, as measured by Doppler, is 43.35mmHg. There is no pulmonic regurgitation present. The aortic root size is normal. The inferior vena cava is mildly dilated. There is no pericardial effusion. CONCLUSIONS -------- 1. Pacerwire seen in RV and RA. 2. This was a technically good study. 3. The left ventricular size is normal. 4. There is moderate concentric left ventricular hypertrophy. 5. Overall left ventricular systolic function is low-normal with, an EF between 50 - 55 %. 6. The right ventricle is normal in size. 7. LA is moderately dilated 34-39 ml/m2 8. The right atrial size is normal. 9. Interatrial and interventricular septum intact. 10. The aortic valve is trileaflet and appears structurally normal. 11. There is mild aortic regurgitation. 12. Mild mitral regurgitation is present. 13. Mild tricuspid regurgitation present. 14. There is mild pulmonary hypertension. 15. The right ventricular systolic pressure, as measured by Doppler, is 43.35mmHg. 16. There is no pulmonic regurgitation present. 17. The aortic root size is normal. 18. The inferior vena cava is mildly dilated. 19. There is no pericardial effusion. END TRIMMER: Lyubov Torres RDCS
[2018-08-05] MEDS ORDERED: AZITHROMYCIN 500 MG in SODIUM CHLORIDE 0.9% 250 ML IVPB SCH (12:00)
[2018-08-05 13:38] VITALS: BMI 26.9
--- NOTE | 2018-08-05 17:11 | CONS ---
CONSULTATION Mrs. Moya is a 73-year-old female who is seen for cardiac evaluation. Patient's history and physical examinations are reviewed. This patient has been having cough with a green/yellow sputum for the last few days. She also had a fever and chill. Patient initially was treated for an ear infection or sinusitis for about a week with antibiotic and prednisone. Subsequently patient came to the emergency room. Patient was found to have a new infiltrate suggestive of pneumonia and patient has been started on Rocephin and azithromycin. Patient denies any history of COPD. 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 Patient denies any history of diabetes, hypertension, angina or prior myocardial infarction. Patient denies any chest discomfort suggestive of angina. PAST MEDICAL HISTORY: Past medical history includes: 1. History of sick sinus syndrome with permanent pacemaker. 2. History of rheumatoid arthritis. 3. Hypothyroidism. 4. Bilateral glaucoma. 5. Orthopedic surgery. 6. Pacemaker inserted in 2000. Last generator change was done in . 7. History of kidney stone. 8. History of bilateral eye surgery for glaucoma. HOME MEDICATIONS: Patient's home medications included: 1. Metoprolol. 2. Ditropan. 3. Neurontin. 4. Zantac. 5. Eliquis. 6. Flexeril. 7. Xalatan. PHYSICAL EXAMINATION: Physical examination in the emergency room revealed patient to have a temperature of 99.1. Patient is feeling better now. She is afebrile. Blood pressure is 125/65 mmHg. Oxygen saturation is 92%. Head/ENT examination is negative. Neck is supple. There is no increase in jugular venous pressure. Both the carotid pulses are felt. There is no bruit. Chest is symmetrical. HEART: The PMI is not felt. First and second heart sounds are heard. Lungs are clinically clear to auscultation and percussion. Lungs reveal a few coarse rales at the left base. Abdomen is soft. EXTREMITIES: Peripheral pulsations are 2+. EKG shows evidence of atrial fibrillation with nonspecific ST-T changes. Patient's initial white count was 11,600. Repeat white count is 18,000. Electrolytes are normal. The patient's initial lactic acid level was 4.4. Repeat lactic acid is 1.5. Patient's BNP level was 6690. Initial troponin was 0.148. Subsequent troponins are 0.139 and 0.129. FINAL IMPRESSION: This patient is admitted with fever, chills and shortness of breath and she has been diagnosed to have pneumonia. The patient has had evidence of lactic acidosis. She did not have any chest pain to suggest ischemia. EKG does not show any acute ischemic changes. Mild rise in the troponin is most likely secondary to type 2 myocardial injury due to supply and demand mismatch and underlying lactic acidosis and infection. There is no evidence of any overt left ventricular failure at present. We will obtain echo and Doppler studies. Continue the current medications. After the patient has recovered from pneumonia, patient should be evaluated with a stress test to rule out underlying significant coronary artery disease. MMODL / IJN: [id number] /
[2018-08-05] MEDS: SODIUM CHLORIDE 0.9% 1,000 ML IV SCH (19:41)
[2018-08-05] MEDS: LATANOPROST 0.005% OPHTH DROPS 2.5 ML BTL BOTH EYES SCH (21:29)
[2018-08-06] MEDS: HYDROcodone/APAP 7.5-325MG 1 EACH TAB PO PRN (02:02)
[2018-08-06] MEDS: SODIUM CHLORIDE 0.9% 1,000 ML IV SCH (04:37)
[2018-08-06] MEDS: LEVOTHYROXINE 125 MCG TAB PO SCH (06:06)
[2018-08-06 06:26] LABS: HCT 34.8 % (34.0-46.0); HGB 11.3 gm/dL (11.4-16.0); MCH 30.1 pg (25.0-35.0); MCHC 32.6 g/dL (31.0-37.0); MCV 92.5 fL (80.0-100.0); Mean Platelet Volume 7.1; Platelet Count 368 k/uL (150-450); RBC 3.76 m/uL (3.80-5.40); WBC 16.2 k/uL (3.8-10.6)
[2018-08-06 06:44] LABS: Calcium 7.6 mg/dL (8.4-10.2); Potassium 5.2 mmol/L (3.5-5.1)
[2018-08-06] MEDS: ALBUTEROL NEBULIZED 2.5 MG/3 ML INHALATION SCH ×2 (08:42→11:45)
[2018-08-06] MEDS ORDERED: AZITHROMYCIN 500 MG TAB PO SCH (09:00)
[2018-08-06] MEDS: FAMOTIDINE 20 MG TAB PO SCH (10:45)
[2018-08-06] MEDS: METOPROLOL TARTRATE 25 MG TAB PO SCH (10:45)
[2018-08-06] MEDS: GABAPENTIN 100 MG CAP PO SCH (10:45)
[2018-08-06] MEDS: APIXABAN 5 MG TAB PO SCH (10:45)
[2018-08-06] MEDS ORDERED: FUROSEMIDE 10 MG/ML 2 ML VIAL IV ONE (10:46)
[2018-08-06] MEDS: OXYBUTYNIN CHLORIDE 5 MG TAB PO SCH (10:46)
[2018-08-06] MEDS ORDERED: CEFDINIR 300 MG CAP PO SCH (11:00)
--- NOTE | 2018-08-06 11:54 | P.DS ---
Providers Date of admission: 08/04/18 12:33 Attending physician: Day Kern Consults: 08/04/18 13:01 Consult Physician Stat Consulting Provider: Lowell Lowe Consult Reason/Comments: CHF, Elevated troponin Do you want consulting provider notified?: Yes Primary care physician: [facility] Course: 73-year-old female admitted for sepsis conveyed to her left lower lobe pneumonia patient does have elevated troponin because of his Cardiology was consulted echocardiogram is being obtained patient does have elevated BNP but was no clinical evidence of scar heart failure. Patient will be continued on IV antibiotics. Feeling better today off oxygen. 08/06/2018 Patient is clinically doing well will be discharged today patient may be a bit volume overloaded although not clinically evident or give her one dose of Lasix will be discharged today. PHYSICAL EXAMINATION: GENERAL: The patient is alert and oriented x3, not in any acute distress. Well developed, well nourished. HEENT: Pupils are round and equally reacting to light. EOMI. No scleral icterus. No conjunctival pallor. Normocephalic, atraumatic. No pharyngeal erythema. No thyromegaly. CARDIOVASCULAR: S1 and S2 present. No murmurs, rubs, or gallops. PULMONARY: Chest is clear to auscultation, no wheezing or crackles. ABDOMEN: Soft, nontender, nondistended, normoactive bowel sounds. No palpable organomegaly. MUSCULOSKELETAL: No joint swelling or deformity. EXTREMITIES: No cyanosis, clubbing, or pedal edema. NEUROLOGICAL: Gross neurological examination did not reveal any focal deficits. SKIN: No rashes. Assessment and Plan Plan: Shortness of breath, possible sepsis from community-acquired pneumonia -Hypokalemia potassium was supplemented -Minimally elevated troponins secondary to sepsis, echo cardiac exam did not show any significant abnormality Atrial fibrillation mild elevated heart rate but the patient is sinus rhythm, patient will be resumed on beta manjit and the Eliquis. -Acute renal failure probably secondary to sepsis him improved now -Gastroesophageal reflux disease -Possibility of COPD without any significant exacerbation at this time -Hypothyroidism -Degenerative osteo-arthritis -Anxiety and depression Patient Condition at Discharge: Stable Plan - Discharge Summary Discharge Rx Participant: No New Discharge Prescriptions: New Albuterol Sulfate [Albuterol Sulfate Hfa] 2 puff PO Q6H PRN #1 inhaler PRN Reason: Shortness Of Breath Or Wheezing Cefdinir [Omnicef] 300 mg PO BID #14 cap Continue Metoprolol Tartrate [Lopressor] 25 mg PO BID Oxybutynin Chloride [Ditropan] 5 mg PO BID Gabapentin [Neurontin] 100 mg PO TID HYDROcodone/APAP 7.5-325MG [[place] 7.5-325] 1 tab PO BID PRN PRN Reason: Pain Levothyroxine Sodium [Synthroid] 125 mcg PO DAILY Folic Acid 1 mg PO DAILY Ranitidine HCl [Zantac] 150 mg PO BID rOPINIRole HCL [Requip] 0.5 mg PO HS PRN PRN Reason: RLS Latanoprost [Xalatan 0.005%] 1 drop BOTH EYES HS Cyclobenzaprine [Flexeril] 5 mg PO DAILY Apixaban [Eliquis] 5 mg PO BID Multivitamins, Thera [Multivitamin (formulary)] 1 tab PO DAILY Discontinued traZODone HCL 100 mg PO HS Discharge Medication List Metoprolol Tartrate [Lopressor] 25 mg PO BID 09/09/13 [History] Oxybutynin Chloride [Ditropan] 5 mg PO BID 09/09/13 [History] Gabapentin [Neurontin] 100 mg PO TID 05/17/14 [History] HYDROcodone/APAP 7.5-325MG [[place] 7.5-325] 1 tab PO BID PRN 10/23/16 [History] Levothyroxine Sodium [Synthroid] 125 mcg PO DAILY 10/27/16 [History] Folic Acid 1 mg PO DAILY 03/29/17 [History] Ranitidine HCl [Zantac] 150 mg PO BID 03/29/17 [History] rOPINIRole HCL [Requip] 0.5 mg PO HS PRN 08/11/17 [History] Apixaban [Eliquis] 5 mg PO BID 06/06/18 [History] Cyclobenzaprine [Flexeril] 5 mg PO DAILY 06/06/18 [History] Latanoprost [Xalatan 0.005%] 1 drop BOTH EYES HS 06/06/18 [History] Multivitamins, Thera [Multivitamin (formulary)] 1 tab PO DAILY 08/04/18 [History] Albuterol Sulfate [Albuterol Sulfate Hfa] 2 puff PO Q6H PRN #1 inhaler 08/06/18 [Rx] Cefdinir [Omnicef] 300 mg PO BID #14 cap 08/06/18 [Rx] Follow up Appointment(s)/Referral(s): Pierce Marin DO [Primary Care Provider] - 08/10/18 10:30 am (Thursday) Lowell Lowe MD [STAFF PHYSICIAN] - 1 Week (Spoke to supply chain development manager. Office will call with appointment time) Patient Instructions/Handouts: Pneumonia (DC) Discharge Disposition: HOME SELF-CARE
--- NOTE | 2018-08-06 15:12 | P.PN ---
Subjective Progress Note Date: 08/06/18 This is a 73-year-old female seen in consultation yesterday by Dr. VC Gallardo. She presented to the hospital with symptoms of productive cough of yellow and green sputum with associated fever and chills. She had been treated for sinusitis for about a week prior to coming to the hospital. Patient has history of tachycardia bradycardia syndrome with some paroxysmal atrial fibrillation and prior pacemaker implantation. Initial cardiology consultation was requested because of abnormality in troponin likely representing type II injury due to supply and demand mismatch. Echocardiogram with Doppler study was performed which revealed an ejection fraction of 50-55%. Blood pressure 120/70 with a heart rate in the 70s, 94% on room air. White blood cell count 16.2, hemoglobin 11.3, sodium 139, potassium 5.2, BUN 19 and creatinine 0.9. Objective - Vital Signs Vital signs: Vital Signs Temp 98.3 F 08/06/18 04:00 Pulse 78 08/06/18 11:55 Resp 17 08/06/18 04:00 BP 120/79 08/06/18 04:00 Pulse Ox 94 L 08/06/18 08:40 Intake & Output 08/05/18 08/06/18 08/06/18 18:59 06:59 18:59 Intake Total 620 200 275 Balance 620 200 275 Weight 66.9 kg 69.4 kg Intake: Intake, IV Titration 200 Amount Sodium Chloride 0.9% 1, 200 000 ml @ 100 mls/hr IV . Q10H G[facility] Rx#:[id number] Oral 620 275 Other: Voiding Method Toilet # Voids 1 1 5 - Exam PHYSICAL EXAMINATION: GENERAL: 73-year-old female in no acute distress at the time of my examination HEENT: Head is atraumatic, normocephalic. Pupils equal, round. Sclera anict leonel. Conjunctiva are clear. Mucous membranes of the mouth are moist. Neck is supple. There is no elevated jugular venous pressure.] bruit is heard. HEART EXAMINATION: Heart S1, S2 normal. No murmur or gallop heard. CHEST EXAMINATION: Lungs reveal fine crackles to bilateral bases. ABDOMEN: Soft, nontender. Bowel sounds are heard. No organomegaly noted. EXTREMITIES: 2+ peripheral pulses with no evidence of peripheral edema and no calf tenderness noted. NEUROLOGIC patient is awake, alert and oriented 3 . . - Labs CBC & Chem 7: 08/06/18 05:50 08/06/18 05:50 Labs: Abnormal Lab Results - Last 24 Hours (Table) 08/06/18 08/06/18 Range/Units 05:50 05:50 WBC 16.2 H (3.8-10.6) k/uL RBC 3.76 L (3.80-5.40) m/uL Hgb 11.3 L (11.4-16.0) gm/dL Potassium 5.2 H (3.5-5.1) mmol/L Chloride 112 H (98-107) mmol/L BUN 19 H (7-17) mg/dL Calcium 7.6 L (8.4-10.2) mg/dL Microbiology - Last 24 Hours (Table) 08/05/18 09:09 Gram Stain - Preliminary Sputum Sputum Culture - Preliminary Vita albicans 08/04/18 11:00 Blood Culture - Preliminary Blood No Growth after 48 hours Assessment and Plan Plan: Assessment and plan #1 pneumonia #2 abnormal troponin, likely secondary to myocardial infarction. Due to supply and demand mismatch. Echocardiogram with Doppler study revealed a normal left ventricular systolic function. Plan From cardiology's perspective, we'll follow this patient along with you now on an as-needed basis only, please don't hesitate to call with any questions. She may be able to be discharged once cleared by primary. DNP note has been reviewed, I agree with a documented findings and plan of care. Patient was seen and examined.
[2018-08-06 15:17] VITALS: RESP 18
[2018-08-06 15:23] VITALS: BP 126/85; PULSE 81; TEMP 96.9
== END 2018-08-06 15:43 | disposition home or self-care (01) | DRG 871 ==
LOC: EC 10:27 → 3SCARD 12:33
PROVIDERS: ADMIT Internal Medicine; ATTEND Internal Medicine
DX: A41.9 Sepsis, unspecified organism (principal); J18.9 Pneumonia, unspecified organism; I21.A1 Myocardial infarction type 2; E87.2 Acidosis; N17.9 Acute kidney failure, unspecified; E86.9 Volume depletion, unspecified; I48.0 Paroxysmal atrial fibrillation; G62.9 Polyneuropathy, unspecified; M06.9 Rheumatoid arthritis, unspecified; E03.9 Hypothyroidism, unspecified; E87.6 Hypokalemia; F32.9 Major depressive disorder, single episode, unspecified; G56.03 Carpal tunnel syndrome, bilateral upper limbs; F41.9 Anxiety disorder, unspecified; G25.81 Restless legs syndrome; K21.9 Gastro-esophageal reflux disease without esophagitis; Z79.01 Long term (current) use of anticoagulants; Z79.890 Hormone replacement therapy; Z79.899 Other long term (current) drug therapy; Z95.0 Presence of cardiac pacemaker; Z87.891 Personal history of nicotine dependence; Z87.442 Personal history of urinary calculi; Z88.1 Allergy status to other antibiotic agents; Z88.5 Allergy status to narcotic agent; Z88.2 Allergy status to sulfonamides; Z90.49 Acquired absence of other specified parts of digestive tract; Z87.01 Personal history of pneumonia (recurrent); Z80.1 Family history of malignant neoplasm of trachea, bronchus and lung; Z82.5 Family history of asthma and other chronic lower respiratory diseases; Z80.42 Family history of malignant neoplasm of prostate
CPT/HCPCS: 36415; 71046; 80048; 80053; 81001; 83605; 83735; 83880; 84132; 84484; 85025; 85027; 85610; 85730; 87040; 87070; 87205; 93005; 93306; 94640; 94644; 94760; 96361; 96365; 96367; 96375; 99291